=== PATIENT | female | born 1960 | race Caucasian/White ===

== ENCOUNTER → 2016-10-22 | Outpatient (CLI) | payer BC ==
--- NOTE | 2016-10-23 10:08 | MM ---
Reason for exam: screening (asymptomatic). Last mammogram was performed 1 year and 1 month ago. History: Patient is postmenopausal. Took estrogen for 5 years 4 months. Physical Findings: A clinical breast exam by your physician is recommended on an annual basis and results should be correlated with mammographic findings. MG Screening Mammo w CAD Bilateral CC and MLO view(s) were taken. Prior study comparison: September 18, 2015, bilateral MG screening mammo w CAD. September 05, 2014, bilateral MG screening mammo w CAD. The breast tissue is heterogeneously dense. This may lower the sensitivity of mammography. Benign calcifications. There is no discrete abnormality. No significant changes when compared with prior studies. ASSESSMENT: Benign, BI-RAD 2 RECOMMENDATION: Routine screening mammogram of both breasts in 1 year.
== END | disposition home or self-care (01) ==
LOC: RADMAMWWP 08:58
PROVIDERS: ATTEND Obstetrics & Gynecology
DX: Z12.31 Encounter for screening mammogram for malignant neoplasm of breast (principal)

== ENCOUNTER → 2016-11-20 | Outpatient (CLI) | payer BC ==
--- NOTE | 2016-11-20 10:07 | XR ---
EXAMINATION TYPE: XR chest 2V DATE OF EXAM: 11/20/2016 9:47 AM COMPARISON: April 22, 2014 HISTORY: Shortness of breath TECHNIQUE: Frontal and lateral views of the chest are obtained. FINDINGS: Scattered senescent parenchymal changes noted. Hyperinflation compatible with COPD. No evidence for infiltrate. No evidence for atelectasis. Heart size is stable. Mediastinal structures are stable and grossly unremarkable. No evidence for hilar prominence. Degenerative changes dorsal spine. IMPRESSION: 1. No evidence for acute pulmonary disease.
== END | disposition home or self-care (01) ==
LOC: RADXRMAIN 09:31
PROVIDERS: ATTEND Family Medicine
DX: R07.9 Chest pain, unspecified (principal)
CPT/HCPCS: 71020

== ENCOUNTER → 2017-05-18 | Outpatient (CLI) | payer BC ==
[2017-05-18 08:00] LABS: EKG EKG PERFORMED
[2017-05-18 08:24] LABS: CH 32.6; CHCM 34.2; HCT 39.2 % (34.0-46.0); HDW 2.38; HGB 12.8 gm/dL (11.4-16.0); MCH 31.3 pg (25.0-35.0); MCHC 32.7 g/dL (31.0-37.0); MCV 95.7 fL (80.0-100.0); Mean Platelet Volume 7.4; WBC 5.3 k/uL (3.8-10.6)
[2017-05-18 08:32] LABS: Appearance,Urine Clear (Clear); Bilirubin,Urine Negative (Negative); Glucose,Urine (UA) Negative (Negative); Ketones,Urine Negative (Negative); Leukocyte Esterase,Urine Negative (Negative); Nitrite,Urine Negative (Negative); Protein,Urine Negative (Negative); Specific Gravity,Urine 1.011 (1.001-1.035); UA Billing (MACRO vs. MICRO) CHEM; Urobilinogen,Urine <2.0 mg/dL (<2.0)
[2017-05-18 08:34] LABS: Partial Thromboplastin Time 24.7 sec (22.0-30.0); Prothrombin Time 10.1 sec (9.0-12.0)
[2017-05-18 08:41] LABS: ALT 34 U/L (9-52); AST 27 U/L (14-36); Alkaline Phosphatase 81 U/L (38-126); Anion Gap 8 mmol/L; Blood Urea Nitrogen 11 mg/dL (7-17); Calcium 9.2 mg/dL (8.4-10.2); Carbon Dioxide 28 mmol/L (22-30); Chloride 106 mmol/L (98-107); Glucose 85 mg/dL (74-99); Non-African American GFR(MDRD) >60 (>60 ml/min/1.73 sqM); Potassium 4.1 mmol/L (3.5-5.1); Sodium 142 mmol/L (137-145); Total Bilirubin 0.5 mg/dL (0.2-1.3); Total Protein 6.5 g/dL (6.3-8.2)
== END | disposition home or self-care (01) ==
LOC: LABPAT 07:50
PROVIDERS: ATTEND Orthopaedic Surgery
DX: Z01.810 Encounter for preprocedural cardiovascular examination (principal); Z01.812 Encounter for preprocedural laboratory examination
CPT/HCPCS: 80053; 81003; 85027; 85610; 85730; 87070; 93005

== ENCOUNTER 2017-06-01 07:30 | Inpatient (IN) | payer BC ==
[2017-05-26 14:36] VITALS: BMI 22.7
[~2017-06-01 07:30] MED LIST: ACETAMINOPHEN TAB 500 MG TAB PO ONE; DEXAMETHASONE SOD PHOSPHATE 10 MG/ML 1 ML VIAL IV ONE; MELOXICAM 7.5 MG TAB PO ONE; MIDAZOLAM 2 MG/2 ML VIAL IV PRN; ONDANSETRON 4 MG/2 ML VIAL IVP ONE; SCOPOLAMINE 1.5MG/72HR PATCH TRANSDERM ONE; ceFAZolin 2 GM in SODIUM CHLORIDE 0.9% 100 ML IVPB ONE; fentaNYL (PF) 50 MCG/ML 2 ML AMP IV PRN
[2017-06-01] MEDS ORDERED: LIDOCAINE 1% 20 ML VIAL (10MG/ML) FOR IV START INTRADERMA ONE (08:40)
[2017-06-01] MEDS: LACTATED RINGERS 1,000 ML IV SCH (08:40)
[2017-06-01] MEDS ORDERED: MIDAZOLAM 2 MG/2 ML VIAL IV ONE (08:50)
[2017-06-01] MEDS ORDERED: ROPIVACAINE 1,100 MG, SODIUM CHLORIDE 0.9% 330 ML MISCELLANE PRN ×2 (09:28)
--- NOTE | 2017-06-01 09:29 | P.ONQ ---
Anesthesiology Proc Note - PNB - Peripheral Nerve Block Performed Right Adductor Canal Indication: Acute Post-Operative Pain, Dx/Pain Location (Jelani Cabezas) Sedation Type: Sedate with meaningful contact maintained Preparation: Sterile Dressing Position: Supine Catheter: Indwelling Needle Types: Other (see comment) (Naveed) Needle Size: 100mm (4") Needle Gauge: 18 Technique: Ultrasound Injectate: 0.5% Ropivacaine (see comment for volume) (20cc) Blood Aspirated: No Pain Paresthesia on Injection Noted: No Resistance on Injection: Normal Events: Uneventful and Well Tolerated
[2017-06-01] MEDS ORDERED: MAGNESIUM HYDROXIDE 2,400 MG/10 ML CUP PO PRN (09:44)
[2017-06-01] MEDS ORDERED: NA PHOS,M-B/NA PHOS,DI-BA 133 ML ENEMA RECTAL PRN (09:44)
[2017-06-01] MEDS ORDERED: BISACODYL 10 MG SUPP RECTAL PRN (09:44)
[2017-06-01] MEDS ORDERED: NALOXONE 0.4 MG/ML 1 ML VIAL IV PRN (09:44)
[2017-06-01] MEDS ORDERED: HYDROcodone/APAP 5-325MG 1 EACH TAB PO PRN (09:44)
[2017-06-01] MEDS ORDERED: DIAZEPAM 5 MG TAB PO PRN ×2 (09:44)
[2017-06-01] MEDS ORDERED: HYDROmorphone 1 MG/ML 1 ML SYRINGE IVP PRN ×2 (09:44)
[2017-06-01] MEDS ORDERED: TRANEXAMIC ACID 1,000 MG/10 ML VIAL ONE (10:07)
[2017-06-01] MEDS ORDERED: SODIUM CHLORIDE 0.9% 100 ML BAG ONE (10:07)
[2017-06-01] MEDS ORDERED: fentaNYL (PF) 50 MCG/ML 2 ML AMP ONE (10:07)
[2017-06-01] MEDS ORDERED: MIDAZOLAM 2 MG/2 ML VIAL ONE (10:07)
[2017-06-01] MEDS ORDERED: ePHEDrine SULFATE/0.9% NACL/PF 50 MG/5 ML SYRINGE IV ONE (10:07)
[2017-06-01] MEDS ORDERED: SUCCINYLCHOLINE CHLORIDE 100 MG/5 ML SYR IV ONE (10:07)
[2017-06-01] MEDS ORDERED: LIDOCAINE 1% INJ 10MG/ML (20 ML MDV) ONE (10:07)
[2017-06-01] MEDS ORDERED: ceFAZolin 3,000 MG in SODIUM CHLORIDE 0.9% IRRIGATIO 3,000 ML IRRIGATION ONE (10:07)
[2017-06-01] MEDS ORDERED: PROPOFOL 10 MG/ML 20 ML VIAL IV ONE (10:07)
[2017-06-01] MEDS ORDERED: TRANEXAMIC ACID 1,000 MG in SODIUM CHLORIDE 0.9% 100 ML IVPB ONE ×2 (10:08→10:09)
[2017-06-01] MEDS: ROPIVACAINE 246.25 MG, EPINEPHrine 0.5 MG, KETOROLAC 30 MG, cloNIDine HCL/PF 80 MCG, WA... MISCELLANE ONE ×10 (10:38→11:15)
[2017-06-01] MEDS ORDERED: LACTATED RINGERS 1,000 ML IV ONE (10:47)
[2017-06-01] MEDS ORDERED: ONDANSETRON 4 MG/2 ML VIAL IVP ONE (12:06)
[2017-06-01] MEDS: SODIUM CHLORIDE 0.9% 1,000 ML IV SCH (13:40)
--- NOTE | 2017-06-01 14:20 | XR ---
EXAMINATION TYPE: XR knee limited RT DATE OF EXAM: 06/01/2017 COMPARISON: NONE TECHNIQUE: Two views submitted HISTORY: Post op FINDINGS: There is a prosthetic knee in near anatomic alignment. There is soft tissue edema and emphysema. IMPRESSION: 1. Postoperative change. Appears in near-anatomic alignment
[2017-06-01] MEDS ORDERED: SUMAtriptan SUCCINATE 50 MG TAB PO PRN (14:56)
--- NOTE | 2017-06-01 15:04 | P.OP ---
Date of Procedure: 06/01/17 Preoperative Diagnosis: Severe osteoarthritis of the right knee Postoperative Diagnosis: Severe osteoarthritis of the right knee Procedure(s) Performed: Right total knee arthroplasty Implants: Marks [employer]hew Oxinium femoral component size 6, right Marks [employer]hew Binta II right nonporous tibial baseplate size 6 [employer]hew size 11 mm Legion XLPE dished articular insert, size 5-6 [employer]hew Binta II resurfacing patellar component, 29 mm, 7.5 mm thick. All components were cemented using Luis bone cement.. The articulation is ceramic on polyethylene. Anesthesia: spinal Surgeon: Jelani Cabezas Colorer Machine #1: Yesenia Gregory Estimated Blood Loss (ml): 50 Pathology: other (Bone and cartilage) Condition: stable Disposition: PACU Indications for Procedure: After failure of conservative treatment we discussed the surgical and nonsurgical treatment options at length. Patient wishes to proceed with a total knee arthroplasty. Complications specific to this procedure were discussed at length, including but not limited to infection, bleeding, stiffness , and nerve injury. Patient is aware of all these complications and informed consent was obtained Operative Findings: The operative findings are consistent with severe osteoarthritis of the right knee Description of Procedure: Patient was seen in the preoperative area consent was reviewed and operative site was marked with a skin marker. An adductor canal pain catheter was placed by anesthesia in the preoperative area. Patient was then brought to the operating room and given preoperative antibiotics intravenously. A spinal anesthetic was administered by the anesthesia department. A tourniquet was placed on the upper thigh and the lower extremity was prepped and draped in usual sterile fashion. A gram of transexamic acid was given. A universal timeout was then performed which confirmed the patient's name, surgical site, ALLERGIES, and consent. The lower extremity was then exsanguinated and tourniquet was inflated to 250 mmHg. A standard and anterior midline approach to the knee was performed. The skin and subcutaneous tissue was dissected down to the patellar tendon. A medial parapatellar arthrotomy was then performed. The knee was then extended, the patellar was everted, and the knee was again flexed. Anterior horns of both menisci were excised, and a release was performed to the posterior medial aspect of the knee. On gross visual inspection, there was complete loss of articular cartilage in the medial and patellofemoral joint spaces. There was also significant cartilage damage in the lateral compartment. There were multiple periarticular osteophytes which were then removed with a Ronguer. The femoral canal was then opened with the appropriate drill, and the intramedullary femoral cutting guide was then placed and set for 4 of valgus. The distal femoral cutting block was then pinned in place, and the distal femur was then cut. The cutting block was then removed and the cut was checked for flatness. Next, the sizing guide was then placed and set for 3 external rotation based off of the epicondylar axis and Whitesides line. After the femur was sized, the appropriate 4-in-1 cutting block was then pinned in place. The anterior condyles were cut without notching. The posterior and chamfer cuts were performed while protecting the collateral ligaments. The cutting block was then removed, and the femoral canal was plugged with autologous bone. Attention was then directed to the tibia. The remaining ACL was removed with a Ronguer, and the tibia was then gently subluxed forward with a large bent knee retractor. Any remaining menisci was excised. The posterior lateral corner was cauterized in order to cauterize the lateral geniculate artery. The extra medullary tibial cutting guide was then placed, set for the appropriate rotation , slope, and depth of resection. The proximal tibia cutting guide was then pinned in place. Proximal tibia was then cut and sized. Next trials were then placed with the appropriate-sized insert. The knee was able to fully extend and flex to 130 and was stable throughout all range of motion. The knee was then extended, patella everted. Patella was then measured, and then using an osteotomy guide, the patella was cut at the appropriate level. The patella was then measured and drilled and the patella trial was then placed. The knee was then taken through range of motion with the patella trial and the patella tracked normally. The knee was then extended patella trial was then removed and the patella was everted. Knee was then flexed and lug holes were drilled through the femoral trial and the femoral trial was then removed. The tibial was then exposed, and the tibial broach guide was then pinned in place after it was set for the appropriate rotation to allow for the most coverage without overhang. The tibia was then reamed and broached. The cut surfaces of bone were then irrigated with pulsatile lavage. The posterior structures were injected with the ropivacaine solution. The knee was also irrigated with Irrisept solution. The components were then opened, the cement was mixed, and the components were then cemented in place. The cement was allowed to harden with the knee in full extension. While the cement was hardening, the remaining soft tissues were then injected with a ropivacaine solution, which consisted of 246.25 mg of ropivacaine, 0.5 mg of epinephrine, 30 mg of Toradol, 80 g of clonidine, and 48.45 mL of sterile water, for a total of 100 mL of fluid injected. After the cemented hardened. The tourniquet was released, and hemostasis was obtained. A second gram of transexamic acid was given. The knee was again irrigated. The knee was again taken through range of motion and found to be stable throughout all range of motion of 0-130 , and the patella tracked normally. The fascia was then closed with #2 strata fix suture. The subcutaneous tissue was closed with 3-0 Vicryl and 3-0 strata fix. Dermabond tape was used for the skin and placed with the knee in flexion. The patient was placed in a sterile dressing. Patient was then transferred to recovery room in stable condition. The respiratory assistant AMANDA Guajardo was required due the complexity surgery and the need for a skilled surgical coordinator. She assisted in positioning, draping, retraction, and closure of the wound.
[2017-06-01] MEDS: HEPARIN SODIUM,PORCINE 5,000 UNIT/ML 1 ML VIAL SQ SCH ×2 (15:23→22:48)
[2017-06-01] MEDS: ONDANSETRON 4 MG/2 ML VIAL IVP PRN (15:23)
[2017-06-01] MEDS: ceFAZolin 2 GM in SODIUM CHLORIDE 0.9% 100 ML IVPB SCH (17:40)
[2017-06-01] MEDS: HYDROmorphone 1 MG/ML 1 ML SYRINGE IVP PRN (18:17)
[2017-06-01] MEDS: hydrOXYzine PAMOATE 25 MG CAP PO PRN (19:58)
[2017-06-01] MEDS: traMADol 50 MG TAB PO PRN (19:59)
[2017-06-01] MEDS: ASPIRIN 325 MG TAB PO SCH (20:01)
[2017-06-01] MEDS: GABAPENTIN 300 MG CAP PO SCH (20:02)
[2017-06-01] MEDS: CITALOPRAM HYDROBROMIDE 20 MG TAB PO SCH (20:02)
[2017-06-01] MEDS: SENNOSIDES-DOCUSATE SODIUM 1 EACH TAB PO SCH (20:04)
[2017-06-01] MEDS: TEMAZEPAM 15 MG CAP PO SCH (20:04)
[2017-06-01] MEDS: HYDROcodone/APAP 5-325MG 1 EACH TAB PO PRN (21:48)
[2017-06-02] MEDS: ceFAZolin 2 GM in SODIUM CHLORIDE 0.9% 100 ML IVPB SCH (01:47)
[2017-06-02] MEDS: SODIUM CHLORIDE 0.9% 1,000 ML IV SCH ×2 (01:49→22:11)
[2017-06-02] MEDS: LACTATED RINGERS 1,000 ML IV SCH (03:54)
[2017-06-02] MEDS: ONDANSETRON 4 MG/2 ML VIAL IVP PRN ×2 (04:58→12:36)
[2017-06-02] MEDS: HYDROcodone/APAP 5-325MG 1 EACH TAB PO PRN ×4 (04:58→19:24)
[2017-06-02 07:25] VITALS: RESP 16
[2017-06-02 07:59] LABS: Basophils % (A) 0 %; CH 31.1; CHCM 33.5; Eosinophils % (A) 0 %; HCT 29.1 % (34.0-46.0); HDW 2.39; HGB 10.1 gm/dL (11.4-16.0); Luc # (Auto) 0.15; Luc % (Auto) 2; Lymphocytes # (A) 1.9 k/uL (1.0-4.8); Lymphocytes % (A) 27 %; MCH 32.4 pg (25.0-35.0); MCHC 34.7 g/dL (31.0-37.0); MCV 93.4 fL (80.0-100.0); Mean Platelet Volume 7.1; Monocytes # (A) 0.4 k/uL (0-1.0); Monocytes % (A) 5 %; Neutrophils # (A) 4.7 k/uL (1.3-7.7); Neutrophils % (A) 66 %; RBC 3.11 m/uL (3.80-5.40); RDW 12.8 % (11.5-15.5); WBC 7.2 k/uL (3.8-10.6); WBC (Perox) 7.29
--- NOTE | 2017-06-02 08:16 | P.PN ---
Subjective Principal diagnosis: Primary osteoarthritis right knee, status post right total knee arthroplasty This is a 56-year-old female who is status post right total knee arthroplasty. This is postoperative day #1. Patient states her pain is under control. Patient states she has not been out of bed yet due to low blood pressure. Patient denies any numbness, weakness, tingling, fever/chills Objective - Vital Signs Vital signs: Vital Signs Temp 97.1 F L 06/02/17 07:00 Pulse 64 06/02/17 07:00 Resp 16 06/02/17 07:00 BP 95/60 06/02/17 07:00 Pulse Ox 97 06/02/17 07:00 Intake & Output 06/01/17 06/02/17 06/02/17 18:59 06:59 18:59 Intake Total 1501 Output Total 50 Balance 1451 Intake: IV 1501 Output: Estimated Blood Loss 50 Other: Voiding Method Incontinent Bedpan # Voids 1 - Exam Vital signs are stable. Patient is in no acute distress and is alert and oriented 3. Calf is soft and nontender. Dressing is clean, dry, and intact. Neurovascular status intact. Patient has full foot and ankle motion. - Labs CBC & Chem 7: 06/02/17 06:40 Labs: Abnormal Lab Results - Last 24 Hours (Table) 06/02/17 Range/Units 06:40 RBC 3.11 L (3.80-5.40) m/uL Hgb 10.1 L (11.4-16.0) gm/dL Hct 29.1 L (34.0-46.0) % Assessment and Plan (1) Primary osteoarthritis of right knee Status: Acute (2) S/P total knee arthroplasty Status: Acute Plan: #1 Continue with routine postoperative care. #2 Anticoagulation with aspirin. #3 Physical therapy and CPM today. #4 Appreciate input from medicine. #5 Anticipate discharge home with home care likely tomorrow.
--- NOTE | 2017-06-02 08:21 | P.PN ---
Progress Note - Text The patient is status post right adductor canal catheter placement. The catheter was placed for postoperative pain control, status post total right arthroplasty. Ropivacaine 0.2% is infusing at 10 mLs per hour. The patient has no complaints of right lower extremity numbness or weakness. Patient's VAS score is 3 -10. Assessment: Patient's adductor canal catheter is in place and working appropriately. Plan: continue infusion and adjust it as needed.
[2017-06-02] MEDS: hydrOXYzine PAMOATE 25 MG CAP PO PRN ×2 (09:12→14:13)
[2017-06-02] MEDS: ASPIRIN 325 MG TAB PO SCH ×2 (09:13→20:22)
[2017-06-02] MEDS: MELOXICAM 7.5 MG TAB PO SCH (09:13)
[2017-06-02] MEDS: HEPARIN SODIUM,PORCINE 5,000 UNIT/ML 1 ML VIAL SQ SCH ×2 (09:13→17:30)
[2017-06-02] MEDS: GABAPENTIN 300 MG CAP PO SCH ×2 (09:13→20:23)
[2017-06-02] MEDS: PANTOPRAZOLE 40 MG TABLET PO SCH (09:13)
[2017-06-02] MEDS ORDERED: SODIUM CHLORIDE 0.9% 1,000 ML IV ONE (12:31)
--- NOTE | 2017-06-02 12:40 | P.CONS ---
History of Present Illness - Reason for Consult Consult date: 06/02/17 Medical management - Chief Complaint S/P right total knee arthroplasty - History of Present Illness 56-year-old female who underwent an elective right total knee arthroplasty on 06/01/[address] Cabezas after failing conservative treatment. Dr. Fleming was consulted for medical management. The patient was seen and examined this morning on rounds with Dr. Fleming. She states she is feeling well overall. She has not been out of bed yet because she says her leg was still numb from her nerve block and ON-Q pain pump. She also states her blood pressure has been low since surgery. Her last documented blood pressure is 95/60 and prior to that was 102/52. She has been afebrile. She is maintaining an oxygen saturation of greater than 92%. She states her pain is well-controlled Addendum: Per Nursing, The patient got up into the chair around 1200 and her blood pressure dropped into the 70s. Patient was asymptomatic. She denies dizziness or lightheadedness. Nursing also states the patient is having pain and she is requesting Dilaudid. Will bolus patient 1 L normal saline. Once blood pressure is stable patient may receive pain medication. Review of Systems GENERAL: Patient denies fever, chills, weight gain, or weight loss. RESPIRATORY: Denies dyspnea, cough, sputum production, or hemoptysis. CARDIOVASCULAR: Denies chest pain, pressure, palpitations, claudication, or arrhythmias. GI: Denies abdominal pain, diarrhea, incontinence, heartburn, nausea, constipation, or blood in the stool. : Denies urinary frequency, burning, dysuria, or cloudy urine. Denies blood in the urine. MUSCULOSKELETAL: Positive for minimal pain at surgical site. Denies cramps, swelling, or decreased range of motion. 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) History of Any Multi-Drug Resistant Organisms: None Reported Past Surgical History: Adenoidectomy, Cholecystectomy, Hysterectomy, Orthopedic Surgery, Tonsillectomy Additional Past Surgical History / Comment(s): athroscopic surgyer rt knee x3, ovarian surgery Past Anesthesia/Blood Transfusion Reactions: Family History of Problems w/ Anesthesia, Postoperative Nausea & Vomiting (PONV) Additional Past Anesthesia/Blood Transfusion Reaction / Comm: mother-PONV Smoking Status: Never smoker - Past Family History Mother Family Medical History: Cancer Additional Family Medical History / Comment(s): lung Sister(s) Family Medical History: Cancer Additional Family Medical History / Comment(s): lung Daughter(s) Family Medical History: Pulmonary Embolus Medications and Allergies Home Medications Medication Instructions Recorded Confirmed Type Gabapentin [Neurontin] 300 mg PO BID 04/22/14 06/01/17 History traMADol HCl [Ultram] 50 mg PO Q6H PRN 04/22/14 06/01/17 History Cholecalciferol (Vitamin D3) 2,000 unit PO DAILY 05/26/17 06/01/17 History [Vitamin D3] Citalopram Hydrobromide [CeleXA] 40 mg PO HS 05/26/17 06/01/17 History Cyanocobalamin (Vitamin B-12) 1,000 mcg PO DAILY 05/26/17 06/01/17 History [Vitamin B-12] Ibuprofen [Motrin] 800 mg PO DAILY PRN 05/26/17 06/01/17 History Multivit-Min/Iron/Folic/Lutein 1 tab PO DAILY 05/26/17 06/01/17 History [Centrum Silver Women Tablet] SUMAtriptan SUCCINATE [Imitrex] 50 mg PO BID PRN 05/26/17 06/01/17 History Temazepam [Restoril] 15 mg PO HS 05/26/17 06/01/17 History Allergies Allergy/AdvReac Type Severity Reaction Status Date / Time fluconazole [From Diflucan] Allergy Swelling Verified 06/01/17 13:32 sulfamethoxazole Allergy Rash/Hives Verified 06/01/17 13:32 [From Bactrim] trimethoprim [From Bactrim] Allergy Rash/Hives Verified 06/01/17 13:32 acetaminophen [From Vicodin] AdvReac Nausea & Verified 06/01/17 13:32 Vomiting hydrocodone bitartrate AdvReac Nausea & Verified 06/01/17 13:32 [From Vicodin] Vomiting Physical Exam Vitals: Vital Signs Temp Pulse Pulse Resp BP Pulse Ox 06/02/17 08:00 64 66 16 06/02/17 07:00 97.1 F L 64 16 95/60 97 06/02/17 05:05 102/52 06/02/17 01:35 98.2 F 68 18 95/57 95 06/01/17 20:00 97 F L 66 18 105/58 97 06/01/17 14:45 68 106/56 97 06/01/17 14:30 65 107/58 96 06/01/17 14:15 63 110/56 96 06/01/17 14:00 67 119/55 96 06/01/17 13:45 66 112/59 95 06/01/17 13:30 69 112/57 96 06/01/17 13:15 68 112/56 96 06/01/17 12:55 96.6 F L 77 16 109/59 98 06/01/17 12:45 73 18 107/55 96 06/01/17 12:30 78 18 110/56 92 L Intake and Output 06/01/17 06/02/17 06/02/17 22:59 06:59 14:59 Other: Voiding Method Bedpan Bedpan # Voids 1 1 GENERAL: Alert and oriented. Appears in no acute distress. Pleasant. RESPIRATORY: Lungs clear bilaterally. No use of accessory muscles. Patient maintaining oxygen saturation greater than 92%. CARDIOVASCULAR: S1 and S2 noted. No murmurs auscultated. No JVD noted. EXTREMITIES: No edema noted. Palpable pedal pulses +2. On-Q pain pump noted to right leg. ABDOMEN: No distention noted. Abdomen soft and round. Normal active bowel sounds auscultated 4 quadrants. No pain or tenderness noted upon palpation. SKIN: Dressing to right knee clean dry and intact. Results CBC & Chem 7: 06/02/17 06:40 Labs: Abnormal Lab Results - Last 24 Hours (Table) 06/02/17 Range/Units 06:40 RBC 3.11 L (3.80-5.40) m/uL Hgb 10.1 L (11.4-16.0) gm/dL Hct 29.1 L (34.0-46.0) % Assessment and Plan Plan: ASSESSMENT: -History of osteoarthritis, status post right total knee arthroplasty -History of arthroscopic surgery to right knee 3 -Postoperative hypotension, may be due to combination of medications and anesthesia -History of atrial fibrillation, not on chronic anticoagulation PLAN: -Continue postop management per Dr. Cabezas -Resume home meds as appropriate -Monitor labs -Continue IV hydration -GI prophylaxis: Protonix 40mg PO daily -DVT prophylaxis: Heparin 5000 units subcu every 8 hours -Monitor vital signs and address as appropriate -Advance diet as tolerated -Physical therapy -Encourage ambulation as tolerated -Continue On-Q pain ball per Anesthesia -Encourage use of incentive spirometer The above impression and plan of care have been discussed and directed by signing physician. Janine Null, nurse practitioner, acting as scribe for signing physician.
[2017-06-02] MEDS: HYDROmorphone 1 MG/ML 1 ML SYRINGE IVP PRN ×2 (13:04→15:56)
[2017-06-02] MEDS: CHOLECALCIFEROL 1,000 UNIT TAB PO SCH (13:05)
[2017-06-02] MEDS: MULTIVITAMINS, THERA 1 EACH TAB PO SCH (13:06)
[2017-06-02] MEDS: CYANOCOBALAMIN 500 MCG TAB PO SCH (13:06)
[2017-06-02] MEDS: traMADol 50 MG TAB PO PRN (20:22)
[2017-06-02] MEDS: CITALOPRAM HYDROBROMIDE 20 MG TAB PO SCH (20:23)
[2017-06-02] MEDS: TEMAZEPAM 15 MG CAP PO SCH (20:23)
[2017-06-02] MEDS: SENNOSIDES-DOCUSATE SODIUM 1 EACH TAB PO SCH (20:24)
[2017-06-03] MEDS: HEPARIN SODIUM,PORCINE 5,000 UNIT/ML 1 ML VIAL SQ SCH ×4 (00:23→23:49)
[2017-06-03] MEDS: hydrOXYzine PAMOATE 25 MG CAP PO PRN ×4 (00:23→16:08)
[2017-06-03] MEDS: HYDROcodone/APAP 5-325MG 1 EACH TAB PO PRN ×5 (00:24→21:16)
[2017-06-03] MEDS: SODIUM CHLORIDE 0.9% 1,000 ML IV SCH ×2 (00:32→21:15)
[2017-06-03] MEDS: LACTATED RINGERS 1,000 ML IV SCH (00:33)
[2017-06-03] MEDS: MELOXICAM 7.5 MG TAB PO SCH (07:57)
[2017-06-03] MEDS: ASPIRIN 325 MG TAB PO SCH ×2 (07:57→21:15)
[2017-06-03] MEDS: PANTOPRAZOLE 40 MG TABLET PO SCH (07:57)
[2017-06-03] MEDS: GABAPENTIN 300 MG CAP PO SCH ×2 (07:57→21:16)
--- NOTE | 2017-06-03 08:38 | P.PN ---
Subjective Principal diagnosis: 56 year old female seen and examined this morning on rounds with Dr. Fleming. She states she is feeling well this morning and her pain is tolerable. She states she was up in the chair yesterday but has not done much walking. Her blood pressure did drop into the 70s yesterday when she got up in the chair. She received 1L fluid bolus. Her blood pressure this morning is 113/59. She is tolerating an oral diet without nausea or vomiting. She denies shortness of breath or chest pain. She denies dizziness or lightheadedness. Objective - Vital Signs Vital signs: Vital Signs Temp 98.5 F 06/03/17 07:00 Pulse 76 06/03/17 07:00 Resp 16 06/03/17 07:00 BP 113/59 06/03/17 07:00 Pulse Ox 94 L 06/03/17 07:00 Intake & Output 06/02/17 06/03/17 06/03/17 18:59 06:59 18:59 Intake Total 200 Output Total 600 300 Balance -600 -100 Intake: Oral 200 Output: Urine 600 300 Other: Voiding Method Bedpan Bedpan # Voids 2 1 - Exam GENERAL: Alert and oriented. Appears in no acute distress. Pleasant. RESPIRATORY: Lungs clear bilaterally. No use of accessory muscles. Patient maintaining oxygen saturation greater than 92%. CARDIOVASCULAR: S1 and S2 noted. No murmurs auscultated. No JVD noted. EXTREMITIES: No edema noted. Palpable pedal pulses +2. On-Q pain pump noted to right leg. ABDOMEN: No distention noted. Abdomen soft and round. Normal active bowel sounds auscultated 4 quadrants. No pain or tenderness noted upon palpation. SKIN: Dressing to right knee clean dry and intact. - Labs CBC & Chem 7: 06/02/17 06:40 Assessment and Plan Plan: ASSESSMENT: -History of osteoarthritis, status post right total knee arthroplasty -History of arthroscopic surgery to right knee 3 -Postoperative hypotension, may be due to combination of medications and anesthesia, resolved -History of atrial fibrillation, not on chronic anticoagulation PLAN: -Continue postop management per Dr. Cabezas -Monitor labs -GI prophylaxis: Protonix 40mg PO daily -DVT prophylaxis: Heparin 5000 units subcu every 8 hours -Monitor vital signs and address as appropriate -Physical therapy -Encourage ambulation as tolerated -Continue On-Q pain ball per Anesthesia -Encourage use of incentive spirometer -Patient is cleared for discharge from a medical standpoint per Dr. Fleming The above impression and plan of care have been discussed and directed by signing physician. Janine Null, nurse practitioner, acting as scribe for signing physician.
--- NOTE | 2017-06-03 08:40 | P.PN ---
Subjective Principal diagnosis: Primary osteoarthritis right knee, status post right total knee arthroplasty This is a 56-year-old female who is status post right total knee arthroplasty. This is postoperative day #2. Patient states her pain is under control, but that she has developed an achiness in the calf and more swelling. Patient has been up and out of bed to sit in a chair, but has had difficulty with low blood pressure and nausea. Patient denies any numbness, weakness, tingling, fever/ chills. Objective - Vital Signs Vital signs: Vital Signs Temp 98.5 F 06/03/17 07:00 Pulse 76 06/03/17 08:00 Resp 16 06/03/17 08:00 BP 113/59 06/03/17 07:00 Pulse Ox 94 L 06/03/17 07:00 Intake & Output 06/02/17 06/03/17 06/03/17 18:59 06:59 18:59 Intake Total 200 Output Total 600 300 Balance -600 -100 Weight 65.771 kg Intake: Oral 200 Output: Urine 600 300 Other: Voiding Method Bedpan Bedpan Bedpan # Voids 2 1 - Exam Vital signs are stable. Patient is in no acute distress and is alert and oriented 3. Calf is soft and mildly tender. Incision is clean, dry, and intact. Neurovascular status intact. Patient has full foot and ankle motion. - Labs CBC & Chem 7: 06/02/17 06:40 Assessment and Plan (1) Primary osteoarthritis of right knee Status: Acute (2) S/P total knee arthroplasty Status: Acute Plan: #1 Continue with routine postoperative care. #2 Doppler pending #3 Anticoagulation with aspirin. #4 Physical therapy and CPM today. #5 Appreciate input from medicine. #6 Anticipate discharge home with home care likely tomorrow.
[2017-06-03] MEDS: CHOLECALCIFEROL 1,000 UNIT TAB PO SCH (12:51)
[2017-06-03] MEDS: MULTIVITAMINS, THERA 1 EACH TAB PO SCH (12:51)
[2017-06-03] MEDS: CYANOCOBALAMIN 500 MCG TAB PO SCH (12:51)
[2017-06-03] MEDS: ONDANSETRON 4 MG/2 ML VIAL IVP PRN (12:51)
--- NOTE | 2017-06-03 12:51 | US ---
EXAMINATION TYPE: US venous doppler duplex LE RT DATE OF EXAM: 06/03/2017 12:36 PM COMPARISON: Prior in PACS December 14, 2013 CLINICAL HISTORY: Patient had right knee replacement on 06/01/2017. Swelling and pain. Patient is curr ently taking blood thinners. SIDE PERFORMED: Right TECHNIQUE: The lower extremity deep venous system is examined utilizing real time linear array sonog autumn with graded compression, doppler sonography and color-flow sonography. VESSELS IMAGED: External Iliac Vein (EIV) Common Femoral Vein Deep Femoral Vein Greater Saphenous Vein * Femoral Vein Popliteal Vein Small Saphenous Vein * Proximal Calf Veins (* superficial vessels) Right Leg: Negative for DVT Grayscale, color doppler, spectral doppler imaging performed of the deep veins of the right lower ext remity. There is normal flow, compressibility, vascular waveforms. IMPRESSION: No ultrasound evidence for acute DVT in right lower extremity.
[2017-06-03] MEDS: traMADol 50 MG TAB PO PRN (14:16)
[2017-06-03] MEDS: CITALOPRAM HYDROBROMIDE 20 MG TAB PO SCH (21:16)
[2017-06-03] MEDS: SENNOSIDES-DOCUSATE SODIUM 1 EACH TAB PO SCH (21:16)
[2017-06-03] MEDS: TEMAZEPAM 15 MG CAP PO SCH (21:34)
[2017-06-04] MEDS: HYDROcodone/APAP 5-325MG 1 EACH TAB PO PRN (04:58)
[2017-06-04 07:40] LABS: Basophils % (A) 0 %; CH 31.3; CHCM 33.7; Eosinophils # (A) 0.3 k/uL (0-0.7); Eosinophils % (A) 5 %; HCT 28.1 % (34.0-46.0); HDW 2.44; HGB 9.6 gm/dL (11.4-16.0); Luc # (Auto) 0.12; Luc % (Auto) 2; Lymphocytes # (A) 1.4 k/uL (1.0-4.8); Lymphocytes % (A) 25 %; MCH 31.7 pg (25.0-35.0); MCV 93.2 fL (80.0-100.0); Mean Platelet Volume 7.3; Monocytes # (A) 0.3 k/uL (0-1.0); Monocytes % (A) 5 %; Neutrophils # (A) 3.5 k/uL (1.3-7.7); Neutrophils % (A) 63 %; RBC 3.02 m/uL (3.80-5.40); WBC 5.5 k/uL (3.8-10.6); WBC (Perox) 5.93
--- NOTE | 2017-06-04 08:33 | P.DS ---
Providers Date of admission: 06/01/17 07:53 Expected date of discharge: 06/04/17 Attending physician: Jelani Cabezas Consults: 06/01/17 09:44 Consult Physician Routine Consulting Provider: Douglas Fleming Reason/Comments: medical management Do you want consulting provider notified?: Yes Primary care physician: Douglas Fleming - Discharge Diagnosis(es) (1) Primary osteoarthritis of right knee Current Visit: Yes Status: Acute (2) S/P total knee arthroplasty Current Visit: Yes Status: Acute Hospital Course: This is a 56-year-old female with known history of degenerative arthritis of the right knee. The patient presents for evaluation. After discussion and consideration patient elects to proceed with total knee arthroplasty. The patient is seen preoperatively by Dr. Cabezas and cleared for surgery. Patient is admitted to [facility] on 06/01/2017 for total knee arthroplasty. The procedures performed without complication or sequelae. The patient is doing well postoperatively. Labs and vital signs are stable on day of discharge. On day of discharge patient's knee incision is healing well. There is minimal erythema. There is no drainage noted at this time. There is minimal soft tissue swelling to the knee. Patient has full foot and ankle motion without difficulty or pain. Neurovascular status to the right lower extremity is intact. Patient is discharged arm in good condition. Please see med rec for accurate list of home medications. Plan - Discharge Summary New Discharge Prescriptions: New Aspirin 325 mg PO BID #60 tab HYDROcodone/APAP 5-325MG [Barre 5-325] 1 - 2 tab PO Q4-6H PRN #90 tab PRN Reason: Pain Sennosides-Docusate Sodium [Senokot-S] 1 tab PO BID #60 tablet No Action traMADol HCl [Ultram] 50 mg PO Q6H PRN PRN Reason: Pain Gabapentin [Neurontin] 300 mg PO BID Ibuprofen [Motrin] 800 mg PO DAILY PRN PRN Reason: Pain Temazepam [Restoril] 15 mg PO HS Citalopram Hydrobromide [CeleXA] 40 mg PO HS SUMAtriptan SUCCINATE [Imitrex] 50 mg PO BID PRN PRN Reason: migraines Multivit-Min/Iron/Folic/Lutein [Centrum Silver Women Tablet] 1 tab PO DAILY Cyanocobalamin (Vitamin B-12) [Vitamin B-12] 1,000 mcg PO DAILY Cholecalciferol (Vitamin D3) [Vitamin D3] 2,000 unit PO DAILY Discharge Medication List Gabapentin [Neurontin] 300 mg PO BID 04/22/14 [History] traMADol HCl [Ultram] 50 mg PO Q6H PRN 04/22/14 [History] Cholecalciferol (Vitamin D3) [Vitamin D3] 2,000 unit PO DAILY 05/26/17 [History] Citalopram Hydrobromide [CeleXA] 40 mg PO HS 05/26/17 [History] Cyanocobalamin (Vitamin B-12) [Vitamin B-12] 1,000 mcg PO DAILY 05/26/17 [ History] Ibuprofen [Motrin] 800 mg PO DAILY PRN 05/26/17 [History] Multivit-Min/Iron/Folic/Lutein [Centrum Silver Women Tablet] 1 tab PO DAILY 03/06 [History] SUMAtriptan SUCCINATE [Imitrex] 50 mg PO BID PRN 05/26/17 [History] Temazepam [Restoril] 15 mg PO HS 05/26/17 [History] Aspirin 325 mg PO BID #60 tab 06/03/17 [Rx] HYDROcodone/APAP 5-325MG [Barre 5-325] 1 - 2 tab PO Q4-6H PRN #90 tab 06/03/17 [ Rx] Sennosides-Docusate Sodium [Senokot-S] 1 tab PO BID #60 tablet 06/03/17 [Rx] Follow up Appointment(s)/Referral(s): [facility], [NON-STAFF] - Jelani Cabezas DO [Doctor of Osteopathic Medicine] - 06/18/17 9:00 am Ambulatory/Diagnostic Orders: Continuous Passive Motion (CPM) Machine [DME.AMB1] Time Frame: 2 Weeks, Location : Determined By Patient Activity/Diet/Wound Care/Special Instructions: Walker through [place] [employer] [phone] Weightbearing as tolerated with a walker CPM 5-6h daily Daily dressing changes, keep incision clean and dry May shower if no drainage from incision [facility] with questions or concerns [phone] Discharge Disposition: HOME WITH HOME HEALTH SERVICES
[2017-06-04 08:45] VITALS: BP 102/51; PULSE 82; TEMP 97.1
[2017-06-04] MEDS: traMADol 50 MG TAB PO PRN (08:56)
[2017-06-04] MEDS: GABAPENTIN 300 MG CAP PO SCH (08:56)
[2017-06-04] MEDS: ASPIRIN 325 MG TAB PO SCH (08:56)
[2017-06-04] MEDS: HEPARIN SODIUM,PORCINE 5,000 UNIT/ML 1 ML VIAL SQ SCH (08:56)
[2017-06-04] MEDS: MELOXICAM 7.5 MG TAB PO SCH (08:57)
--- NOTE | 2017-06-04 08:57 | P.PN ---
Progress Note - Text patient seen and examined on rounds with Dr. Fleming. Patient states she is feeling well and anxious to go home. States pain is controlled. She is tolerating an oral diet without nausea or vomiting. vital signs have been stable. Patient is cleared for discharge from a medical standpoint. Patient to follow up with Dr. Fleming in 1-2 weeks.
[2017-06-04] MEDS: SODIUM CHLORIDE 0.9% 1,000 ML IV SCH (09:02)
[2017-06-04] MEDS: PANTOPRAZOLE 40 MG TABLET PO SCH (09:14)
[2017-06-04] MEDS: LACTATED RINGERS 1,000 ML IV SCH (09:14)
== END 2017-06-04 09:55 | disposition home health service (06) | DRG 470 ==
LOC: 2ORMAIN 07:53 → 3SUR 12:12
PROVIDERS: ADMIT Orthopaedic Surgery; ATTEND Orthopaedic Surgery
PROC: 0SRC0J9 Replacement of Right Knee Joint with Synthetic Substitute, Cemented, Open Approach (ICD-10-PCS; principal; 2017-06-01 09:40)
DX: M17.11 Unilateral primary osteoarthritis, right knee (principal); I48.91 Unspecified atrial fibrillation; H54.41 Blindness, right eye, normal vision left eye; G43.909 Migraine, unspecified, not intractable, without status migrainosus; M25.761 Osteophyte, right knee; I95.2 Hypotension due to drugs; T41.45XA Adverse effect of unspecified anesthetic, initial encounter; Z88.2 Allergy status to sulfonamides; Z80.1 Family history of malignant neoplasm of trachea, bronchus and lung; Z90.49 Acquired absence of other specified parts of digestive tract; Z79.899 Other long term (current) drug therapy; Z90.710 Acquired absence of both cervix and uterus; Z82.49 Family history of ischemic heart disease and other diseases of the circulatory system; Z79.1 Long term (current) use of non-steroidal anti-inflammatories (NSAID); Z88.6 Allergy status to analgesic agent; Z88.8 Allergy status to other drugs, medicaments and biological substances
CPT/HCPCS: 85025; 88300

== ENCOUNTER → 2017-11-09 | Outpatient (CLI) | payer BC ==
--- NOTE | 2017-11-09 16:33 | BD ---
EXAMINATION TYPE: MG DEXA axial skeleton. DATE OF EXAM: 11/09/2017 COMPARISON: 09/05/2014 CLINICAL HISTORY: 57-year-old female osteopenia Height: 66 IN Weight: 150 LBS FRAX RISK QUESTIONS: Alcohol (3 or more units per day): NO Family History (Parent hip fracture): NO Glucocorticoids (More than 3mos): NO (Ex: prednisone, prednisolone, methylprednisolone, dexamethasone, and hydrocortisone). History of Fracture in Adulthood: YES RIBS AGE 54 Secondary Osteoporosis: 1. Type 1 Diabetes: NO 2. Hyperthyroidism: NO 3. Menopause before 45: AGE 39 TOTAL HYST 4. Malnutrition: NO 5. Chronic liver disease: NO Rheumatoid Arthritis: NO Current Tobacco Use: NO RISK FACTORS HISTORY OF: Active: YES Diet low in dairy products/other sources of calcium: YES Postmenopausal woman: AGE 39 Take estrogen and/or progesterone medications: NOT NOW How long: AGE 39 - 44 MEDICATIONS: Osteoporosis Medications: NOT NOW Which medication: Fosamax How Long: AGE 52 FOR 1 YEAR Additional Medications: GABAPENTIN, TEMAZEPAM, CITALOPRAM, SUMATRIPTAN, MOTRIN 800, OSTEO BI-FLEX, B1 2, BENADRYL, MELATONIN, TRAMADOL EXAM MEASUREMENTS: Bone mineral densitometry was performed using the [employer] System. Bone mineral density as measured about the Lumbar spine is: ----- L1-L4(G/cm2): 0.895 T Score Values are as follows: ----- L2: -2.4 ----- L3: -2.1 ----- L4: -2.7 ----- L1-L4: -2.4 Bone mineral density has: Decreased -7.1% since study of: 09/05/2014 Bone mineral density about the R hip (g/cm2): 0.969 Bone mineral density about the L hip (g/cm2): 0.938 T Score values are as follows: -----R Neck: -0.5 -----L Neck: -0.7 -----R Total: -0.4 -----L Total: -0.3 Bone mineral density has: Decreased -6.9% since study of: 09/05/2014 IMPRESSION: Osteopenia (T Score between -2.5 and -1). However, note that measurements border on osteoporosis in t he lumbar spine. There is slightly increased risk of fracture and the patient may be considered for treatment. Re-Screen 2-5 years. NOTE: T-SCORE=SD OF THE YOUNG ADULT MEAN.
--- NOTE | 2017-11-11 08:54 | MM ---
Reason for exam: screening (asymptomatic). Last mammogram was performed 1 year and 1 month ago. History: Patient is postmenopausal. Took estrogen for 5 years 4 months. Physical Findings: A clinical breast exam by your physician is recommended on an annual basis and results should be correlated with mammographic findings. MG Screening Mammo w CAD Bilateral CC and MLO view(s) were taken. Prior study comparison: October 22, 2016, bilateral MG screening mammo w CAD. September 18, 2015, bilateral MG screening mammo w CAD. The breast tissue is heterogeneously dense. This may lower the sensitivity of mammography. No significant changes when compared with prior studies. ASSESSMENT: Negative, BI-RAD 1 RECOMMENDATION: Routine screening mammogram of both breasts in 1 year.
== END | disposition home or self-care (01) ==
LOC: RADMAMWWP 15:01
PROVIDERS: ATTEND Obstetrics & Gynecology
DX: Z12.31 Encounter for screening mammogram for malignant neoplasm of breast (principal); M85.80 Other specified disorders of bone density and structure, unspecified site
CPT/HCPCS: 77067; 77080

== ENCOUNTER → 2018-11-18 | Day surgery (SDC) | payer BC ==
[2018-11-15 15:32] VITALS: BMI 25.0
[~2018-11-18] MED LIST changes: -ACETAMINOPHEN TAB 500 MG TAB PO ONE; -DEXAMETHASONE SOD PHOSPHATE 10 MG/ML 1 ML VIAL IV ONE; +LACTATED RINGERS 1,000 ML IV SCH; +LIDOCAINE 1% 20 ML VIAL (10MG/ML) FOR IV START INTRADERMA ONE; +LIDOCAINE 1% INJ 10MG/ML (20 ML MDV) ONE; -MELOXICAM 7.5 MG TAB PO ONE; -MIDAZOLAM 2 MG/2 ML VIAL IV PRN; -ONDANSETRON 4 MG/2 ML VIAL IVP ONE; +PROPOFOL 10 MG/ML 20 ML VIAL IV ONE; -SCOPOLAMINE 1.5MG/72HR PATCH TRANSDERM ONE; -ceFAZolin 2 GM in SODIUM CHLORIDE 0.9% 100 ML IVPB ONE; -fentaNYL (PF) 50 MCG/ML 2 ML AMP IV PRN
[2018-11-18 07:42] VITALS: TEMP 97.4
--- NOTE | 2018-11-18 08:39 | P.GSHP ---
History of Present Illness H&P Date: 11/18/18 Chief Complaint: Colon cancer screening Patient here today for colonoscopy. She is not sure how long ago her last colonoscopy was. No bowel related complaints. Some mild right-sided abdominal pain. No family history of colon cancer. Previous colonoscopies normal. Past Medical History Past Medical History: AFIB Additional Past Medical History / Comment(s): migraines, palpitations, History of Any Multi-Drug Resistant Organisms: None Reported Past Surgical History: Adenoidectomy, Cholecystectomy, Hysterectomy, Joint Replacement, Orthopedic Surgery, Tonsillectomy Additional Past Surgical History / Comment(s): athroscopic surgery rt knee x3, rt knee replacement, Past Anesthesia/Blood Transfusion Reactions: Family History of Problems w/ Anesthesia, Postoperative Nausea & Vomiting (PONV) Additional Past Anesthesia/Blood Transfusion Reaction / Comment(s): mother-PONV Smoking Status: Never smoker - Past Family History Mother Family Medical History: Cancer Additional Family Medical History / Comment(s): lung Sister(s) Family Medical History: Cancer Additional Family Medical History / Comment(s): lung Daughter(s) Family Medical History: Pulmonary Embolus Medications and Allergies Home Medications Medication Instructions Recorded Confirmed Type Gabapentin [Neurontin] 300 mg PO BID 04/22/14 11/18/18 History Cholecalciferol (Vitamin D3) 2,000 unit PO DAILY 05/26/17 11/18/18 History [Vitamin D3] Citalopram Hydrobromide [CeleXA] 40 mg PO HS 05/26/17 11/18/18 History Cyanocobalamin (Vitamin B-12) 2,500 mcg PO DAILY 05/26/17 11/18/18 History [Vitamin B-12] Ibuprofen [Motrin] 800 mg PO DAILY PRN 05/26/17 11/18/18 History SUMAtriptan SUCCINATE [Imitrex] 50 mg PO BID PRN 05/26/17 11/18/18 History Temazepam [Restoril] 15 mg PO HS 05/26/17 11/18/18 History Ascorbic Acid [Vitamin C] 500 mg PO DAILY 11/15/18 11/18/18 History Ferrous Sulfate [Feosol] 325 mg PO DAILY 11/15/18 11/18/18 History Allergies Allergy/AdvReac Type Severity Reaction Status Date / Time fluconazole [From Diflucan] Allergy Swelling Verified 11/15/18 15:23 sulfamethoxazole Allergy Rash/Hives Verified 11/15/18 15:23 [From Bactrim] trimethoprim [From Bactrim] Allergy Rash/Hives Verified 11/15/18 15:23 acetaminophen [From Vicodin] AdvReac Nausea & Verified 11/15/18 15:23 Vomiting hydrocodone bitartrate AdvReac Nausea & Verified 11/15/18 15:23 [From Vicodin] Vomiting Surgical - Exam Vital Signs Temp Pulse Resp BP Pulse Ox 97.4 F L 66 16 119/61 98 11/18/18 07:38 11/18/18 07:38 11/18/18 07:38 11/18/18 07:38 11/18/18 07:38 Physical exam: General: Well-developed, well-nourished HEENT: Normocephalic, sclerae nonicteric Abdomen: Nontender, nondistended Extremities: No edema Neuro: Alert and oriented Assessment and Plan (1) Colon cancer screening Narrative/Plan: Will proceed with colonoscopy at this time Current Visit: Yes Status: Acute Code(s): Z12.11 - ENCOUNTER FOR SCREENING FOR MALIGNANT NEOPLASM OF COLON SNOMED Code(s): 675964342
--- NOTE | 2018-11-18 08:52 | P.PCN ---
Date of Procedure: 11/18/18 Procedure(s) Performed: PREOPERATIVE DIAGNOSIS: Colon cancer screening POSTOPERATIVE DIAGNOSIS: Normal exam PROCEDURE: Colonoscopy ANESTHESIA: MAC SURGEON: Jalen Phelps M.D. SPECIMENS: None ENDOSCOPIC PROCEDURE: The patient was placed on the endoscopy table in the left decubitus position. The Olympus colonoscope was inserted into the anus and passed under direct visualization to the base of the cecum. The appendiceal orifice was visualized. From that point the scope was slowly withdrawn inspecting all surfaces carefully. There were no neoplastic inflammatory or polypoid lesions throughout the cecum, ascending, transverse, descending, sigmoid and rectum. There was no diverticulosis noted. Digital rectal examination was normal. The patient was taken to the recovery room in stable condition per anesthesia guidelines. RECOMMENDATIONS: Increase fiber. Follow-up colonoscopy in 10 years.
[2018-11-18 09:26] VITALS: BP 113/71; PULSE 61; RESP 17
== END ==
LOC: ORWHC2ENDO 07:25
PROVIDERS: ATTEND Surgery
DX: Z12.11 Encounter for screening for malignant neoplasm of colon (principal); I48.91 Unspecified atrial fibrillation; G43.909 Migraine, unspecified, not intractable, without status migrainosus; Z79.1 Long term (current) use of non-steroidal anti-inflammatories (NSAID); Z79.899 Other long term (current) drug therapy; Z88.1 Allergy status to other antibiotic agents; Z88.5 Allergy status to narcotic agent; Z88.2 Allergy status to sulfonamides
CPT/HCPCS: J2001; J2704; G0121

== ENCOUNTER → 2019-10-02 | Outpatient (CLI) | payer BC ==
--- NOTE | 2019-10-02 14:54 | XR ---
EXAMINATION TYPE: XR chest 2V DATE OF EXAM: 10/02/2019 COMPARISON: 11/20/2016 HISTORY: Cough and congestion TECHNIQUE: Frontal and lateral views of the chest are obtained. FINDINGS: There is no focal air space opacity, pleural effusion, or pneumothorax seen. The cardiac silhouette size is within normal limits. Mild multilevel degenerative change of the spine. The osseo us structures are intact. Cholecystectomy clips are evident. IMPRESSION: No acute cardiopulmonary process.
== END | disposition home or self-care (01) ==
LOC: RADXRMAIN 12:18
PROVIDERS: ATTEND Family Medicine
DX: R05 Cough (principal); R06.00 Dyspnea, unspecified
CPT/HCPCS: 71046

== ENCOUNTER → 2019-10-27 | Outpatient (CLI) | payer BC ==
--- NOTE | 2019-10-28 19:06 | CT ---
EXAMINATION TYPE: CT brain w con DATE OF EXAM: 10/27/2019 COMPARISON: MRI of the brain dated 11/11/2015 HISTORY: headaches and dizziness post head injury CT DLP: 981.7 mGycm Automated Exposure Control for Dose Reduction was Utilized. TECHNIQUE: CT scan of the head is performed with IV contrast.,CT scan of the head is performed withou t and with with IV Contrast, patient injected with 100 mL of Isovue 300. FINDINGS: Noncontrast images not obtained and therefore there is limited evaluation for intracrania l hemorrhage. No midline shift is seen. The ventricles and sulci are within normal limits in size. Po stcontrast images show no suspicious enhancing intraparenchymal mass. The globes are intact and the v isualized sinuses are clear. IMPRESSION: Exam is limited for intracranial hemorrhage given no images without contrast were obtain ed. Negative contrast enhanced head CT exam. No calvarial fracture.
== END | disposition home or self-care (01) ==
LOC: RADCTMAIN 16:49
PROVIDERS: ATTEND Family Medicine
DX: S06.0X0D Concussion without loss of consciousness, subsequent encounter (principal); Z87.820 Personal history of traumatic brain injury; Z88.1 Allergy status to other antibiotic agents; Z88.2 Allergy status to sulfonamides; Z88.5 Allergy status to narcotic agent
CPT/HCPCS: 70460; Q9967

== ENCOUNTER 2019-11-30 09:53 | Emergency (ER) | payer BC ==
[2019-11-30 09:59] VITALS: BP 129/59; PULSE 66; RESP 18; TEMP 97.8
--- NOTE | 2019-11-30 10:14 | ED ---
Skin/Abscess/FB HPI - General Chief complaint: Skin/Abscess/Foreign Body Stated complaint: swallowed mouthguard Time Seen by Provider: 11/30/19 10:07 Source: patient, RN notes reviewed Mode of arrival: ambulatory Limitations: no limitations - History of Present Illness Initial comments: This a 59-year-old female presents emergency Department with chief complaint of possibly swallowing her mouth guard. Patient states she is a very small-like piece her front teeth. Patient states that she did not put in last night states that she get up to take some Motrin and she keeps increasing size container. Patient states that she believes that she swallowed at that time. Patient was able to eat some crackers this morning, and drink some fluids with essentially no difficulty. Patient has no difficulty breathing no shortness of breath. - Related Data Home Medications Medication Instructions Recorded Confirmed Gabapentin [Neurontin] 300 mg PO BID 04/22/14 11/18/18 Cholecalciferol (Vitamin D3) 2,000 unit PO DAILY 05/26/17 11/18/18 [Vitamin D3] Citalopram Hydrobromide [CeleXA] 40 mg PO HS 05/26/17 11/18/18 Cyanocobalamin (Vitamin B-12) 2,500 mcg PO DAILY 05/26/17 11/18/18 [Vitamin B-12] Ibuprofen [Motrin] 800 mg PO DAILY PRN 05/26/17 11/18/18 SUMAtriptan SUCCINATE [Imitrex] 50 mg PO BID PRN 05/26/17 11/18/18 Temazepam [Restoril] 15 mg PO HS 05/26/17 11/18/18 Ascorbic Acid [Vitamin C] 500 mg PO DAILY 11/15/18 11/18/18 Ferrous Sulfate [Feosol] 325 mg PO DAILY 11/15/18 11/18/18 Allergies Allergy/AdvReac Type Severity Reaction Status Date / Time fluconazole [From Diflucan] Allergy Swelling Verified 11/30/19 09:59 sulfamethoxazole Allergy Rash/Hives Verified 11/30/19 09:59 [From Bactrim] trimethoprim [From Bactrim] Allergy Rash/Hives Verified 11/30/19 09:59 acetaminophen [From Vicodin] AdvReac Nausea & Verified 11/30/19 09:59 Vomiting hydrocodone bitartrate AdvReac Nausea & Verified 11/30/19 09:59 [From Vicodin] Vomiting Review of Systems ROS Statement: Those systems with pertinent positive or pertinent negative responses have been documented in the HPI. ROS Other: All systems not noted in ROS Statement are negative. Past Medical History Past Medical History: AFIB Additional Past Medical History / Comment(s): migraines, palpitations, History of Any Multi-Drug Resistant Organisms: None Reported Past Surgical History: Adenoidectomy, Cholecystectomy, Hysterectomy, Joint Replacement, Orthopedic Surgery, Tonsillectomy Additional Past Surgical History / Comment(s): athroscopic surgery rt knee x3, rt knee replacement, Past Anesthesia/Blood Transfusion Reactions: Family History of Problems w/ Anesthesia, Postoperative Nausea & Vomiting (PONV) Additional Past Anesthesia/Blood Transfusion Reaction / Comment(s): mother-PONV Past Psychological History: No Psychological Hx Reported Smoking Status: Never smoker Past Alcohol Use History: None Reported Past Drug Use History: None Reported - Past Family History Mother Family Medical History: Cancer Additional Family Medical History / Comment(s): lung Sister(s) Family Medical History: Cancer Additional Family Medical History / Comment(s): lung Daughter(s) Family Medical History: Pulmonary Embolus General Exam Limitations: no limitations General appearance: alert, in no apparent distress Head exam: Present: atraumatic, normocephalic, normal inspection Eye exam: Present: normal appearance, PERRL, EOMI. Absent: scleral icterus, conjunctival injection, periorbital swelling ENT exam: Present: normal exam, normal oropharynx, mucous membranes moist, TM's normal bilaterally Neck exam: Present: normal inspection, full ROM. Absent: tenderness, meningismus, lymphadenopathy Respiratory exam: Present: normal lung sounds bilaterally. Absent: respiratory distress, wheezes, rales, rhonchi, stridor Cardiovascular Exam: Present: regular rate, normal rhythm, normal heart sounds. Absent: systolic murmur, diastolic murmur, rubs, gallop, clicks Course Vital Signs 11/30/19 09:57 Temperature 97.8 F Pulse Rate 66 Respiratory 18 Rate Blood Pressure 129/59 O2 Sat by Pulse 98 Oximetry Medical Decision Making - Medical Decision Making X-rays unremarkable patient able to eat and drink without difficulty. Patient be discharged. Return parameters were discussed. Disposition Clinical Impression: Swallowed foreign body Disposition: HOME SELF-CARE Condition: Stable Instructions (If sedation given, give patient instructions): Foreign Body Ingestion (ED) Additional Instructions: Please return to the Emergency Department if symptoms worsen or any other concerns. Is patient prescribed a controlled substance at d/c from ED?: No Referrals: Douglas Fleming DO [Primary Care Provider] - 1-2 days Time of Disposition: 10:44
--- NOTE | 2019-11-30 10:34 | XR ---
EXAMINATION TYPE: XR KUB, XR soft tissue neck, XR chest 1V DATE OF EXAM: 11/30/2019 10:22 AM CLINICAL HISTORY: Possible inhaled foreign body. Pain and choking. TECHNIQUE: Two Upright KUB images of the abdomen are obtained. Single frontal view chest. Two-view s oft tissue neck. COMPARISON: Prior chest x-ray October 02, 2019.. FINDINGS: No suspicious prevertebral soft tissue swelling. Region of epiglottis and vallecula appear within normal limits. No suspicious narrowing of subglottic airway. No suspicious radiodense foreign bodies seen. There are some chronic parenchymal change without suspicious focal airspace opacity, pleural effusion , or pneumothorax seen bilaterally. Cardiac silhouette size appears within normal limits. Osseous str uctures are demineralized. Cholecystectomy clips are redemonstrated. Scattered gas is seen in non-distended stomach and small bowel loops. Gas and fecal material is seen in non-distended colon. Dextroconvex scoliosis centered at L2 level. No suspicious radiodense foreign body. No pneumoperitoneum. Facet arthropathy and spurring lower lumbar spine. IMPRESSION: No suspicious radiodense foreign body. No acute pulmonary process. Overall nonobstructive bowel gas pattern.
== END 2019-11-30 10:58 | disposition home or self-care (01) ==
LOC: EC 09:53
DX: T18.9XXA Foreign body of alimentary tract, part unspecified, initial encounter (principal); Z88.2 Allergy status to sulfonamides; Z88.3 Allergy status to other anti-infective agents; Z88.5 Allergy status to narcotic agent; Z79.899 Other long term (current) drug therapy; Z86.69 Personal history of other diseases of the nervous system and sense organs
CPT/HCPCS: 70360; 71045; 74018; 99283

== ENCOUNTER → 2020-04-30 | Outpatient (CLI) | payer BC ==
--- NOTE | 2020-05-01 12:00 | MM ---
Reason for exam: screening (asymptomatic). Last mammogram was performed 1 year and 1 month ago. History: Patient is postmenopausal. Took estrogen for 5 years 4 months. Physical Findings: A clinical breast exam by your physician is recommended on an annual basis and results should be correlated with mammographic findings. MG Screening Mammo w CAD Bilateral CC and MLO view(s) were taken. Prior study comparison: March 22, 2019, bilateral MG screening mammo w CAD. November 09, 2017, bilateral MG screening mammo w CAD. The breast tissue is heterogeneously dense. This may lower the sensitivity of mammography. No significant changes when compared with prior studies. ASSESSMENT: Negative, BI-RAD 1 RECOMMENDATION: Routine screening mammogram of both breasts in 1 year.
== END | disposition home or self-care (01) ==
LOC: RADMAMWWP 07:43
PROVIDERS: ATTEND Obstetrics & Gynecology
DX: Z12.31 Encounter for screening mammogram for malignant neoplasm of breast (principal)
CPT/HCPCS: 77067

== ENCOUNTER → 2020-06-03 | Outpatient (CLI) | payer BC ==
--- NOTE | 2020-06-03 11:33 | BD ---
EXAMINATION TYPE: Axial Bone Density DATE OF EXAM: 06/03/2020 COMPARISON: Prior DEXA bone scan November 09, 2017 CLINICAL HISTORY: Height: 5 FT 6 1/2 IN Weight: 156 FRAX RISK QUESTIONS: Alcohol (3 or more units per day): NO Family History (Parent hip fracture): NO Glucocorticoids (More than 3mos): NO (Ex: prednisone, prednisolone, methylprednisolone, dexamethasone, and hydrocortisone). History of Fracture in Adulthood: YES Secondary Osteoporosis: 1. Type 1 Diabetes: NO 2. Hyperthyroidism: NO 3. Menopause before 45: YES 4. Malnutrition: NO 5. Chronic liver disease: NO Rheumatoid Arthritis: NO Current Tobacco Use: NO RISK FACTORS HISTORY OF: Family History of Osteoporosis: NO Active: YES Postmenopausal woman: TOTAL HYST AGE 39 Take estrogen and/or progesterone medications: TOOK HRT FROM AGE [age] MEDICATIONS: Additional Medications: VIT D , GABAPENTIN, TEMAZEPAM, CELEXA, MIGRAINE MEDS NEEDED, Additional History: EXAM MEASUREMENTS: Bone mineral densitometry was performed using the [employer] System. Bone mineral density as measured about the Lumbar spine is: ----- L1-L4(G/cm2): 0.914 T Score Values are as follows: ----- L2: -2.5 ----- L3: -2.3 ----- L4: -2.1 ----- L1-L4: -2.2 Bone mineral density has: INCREASED 2.2 % since study of: 2017 Bone mineral density about the R hip (g/cm2): 0.933 Bone mineral density about the L hip (g/cm2): 0.916 T Score values are as follows: -----R Neck: -0.8 -----L Neck: -0.9 -----R Total: -0.4 -----L Total: -0.4 Bone mineral density has: DECREASED -0.6 % since study of: 2018 IMPRESSION: Osteopenia (T Score between -2.5 and -1) remains present in the low back. There remains slightly increased risk of fracture and the patient may be considered for treatment. Re-Screen 2-5 years. NOTE: T-SCORE=SD OF THE YOUNG ADULT MEAN.
== END | disposition home or self-care (01) ==
LOC: RADBDWWP 07:15
PROVIDERS: ATTEND Obstetrics & Gynecology
DX: M85.80 Other specified disorders of bone density and structure, unspecified site (principal)
CPT/HCPCS: 77080

== ENCOUNTER → 2020-11-06 | Outpatient (CLI) | payer BC ==
[2020-11-06 18:35] LABS: African American GFR (CKD) >90 (>60 ml/min/1.73 sqM); Blood Urea Nitrogen 12 mg/dL (7-17); Non-African American GFR(CKD) >90 (>60 ml/min/1.73 sqM)
--- NOTE | 2020-11-06 22:42 | CT ---
EXAMINATION TYPE: CT brain wo con DATE OF EXAM: 11/06/2020 COMPARISON: 10/27/2019 INDICATION: Left orbit pain and vision changes. DLP: 1144.7 mGycm, Automated exposure control for dose reduction was used. CONTRAST: None CT of the brain is performed utilizing 3 mm thick sections through the posterior fossa and 3 mm thick sections through the remaining calvarium. Study is performed within 24 hours of arrival to the hosp ital. No abnormal hyperdensity is present to suggest an acute intracranial hemorrhage. No mass lesion is evident. No acute infarcts are evident. Some minimal deep white matter hypodensity may be present suggestive f or chronic white matter ischemic changes. Ventricles and sulci are appropriate for the patient age. Paranasal sinuses and mastoid air cells within the [id number] are clear. IMPRESSIONS: 1. Mild deep white matter ischemic type changes, stable from comparison
--- NOTE | 2020-11-07 07:39 | CT ---
EXAMINATION TYPE: CT orbits wo/w con DATE OF EXAM: 11/06/2020 COMPARISON: None HISTORY: Left orbit pain and vision changes. CT DLP: 733.1 mGycm Automated exposure control for dose reduction was used. CONTRAST: Performed without and with IV Contrast, patient injected with 100ml mL of Isovue 300. Unenhanced and contrast-enhanced CT of the orbits was performed. FINDINGS: The globes are symmetric bilaterally. There is no evidence for intra or extraconal mass. The extraocular musculature appear to be thickened . The optic nerves are symmetric and free of thickening or mass lesion. The globes have a sunken appe arance and there may be a degree of enophthalmos. No enhancing mass. No lacrimal gland lesion. Parana mike sinuses. Be well-aerated. Osseous structures are normal. IMPRESSION: GLOBES APPEAR TO BE SOMEWHAT SUNKEN BILATERALLY. CORRELATE FOR ENOPHALMOS.
== END | disposition home or self-care (01) ==
LOC: RADCTMAIN 17:59
PROVIDERS: ATTEND Family Medicine
DX: I67.82 Cerebral ischemia (principal); H53.462 Homonymous bilateral field defects, left side; H33.009 Unspecified retinal detachment with retinal break, unspecified eye; Z88.1 Allergy status to other antibiotic agents; Z88.2 Allergy status to sulfonamides; Z88.5 Allergy status to narcotic agent
CPT/HCPCS: 82565; 84520; 70450; 70482; 36415; Q9967

== ENCOUNTER → 2021-06-03 | Outpatient (CLI) | payer BC ==
--- NOTE | 2021-06-04 12:26 | MM ---
Reason for exam: screening (asymptomatic). Last mammogram was performed 1 year and 1 month ago. History: Patient is postmenopausal. Took estrogen for 5 years 4 months. Physical Findings: A clinical breast exam by your physician is recommended on an annual basis and results should be correlated with mammographic findings. MG Screening Mammo w CAD Bilateral CC and MLO view(s) were taken. Prior study comparison: April 30, 2020, bilateral MG screening mammo w CAD. March 22, 2019, bilateral MG screening mammo w CAD. November 09, 2017, bilateral MG screening mammo w CAD. The breast tissue is heterogeneously dense. This may lower the sensitivity of mammography. There are benign appearing vascular calcifications bilaterally. There is no discrete abnormality. ASSESSMENT: Benign, BI-RAD 2 RECOMMENDATION: Routine screening mammogram of both breasts in 1 year.
== END | disposition home or self-care (01) ==
LOC: RADMAMWWP 07:04
PROVIDERS: ATTEND Obstetrics & Gynecology
DX: Z12.31 Encounter for screening mammogram for malignant neoplasm of breast (principal); Z78.0 Asymptomatic menopausal state; Z79.818 Long term (current) use of other agents affecting estrogen receptors and estrogen levels
CPT/HCPCS: 77067

== ENCOUNTER → 2021-07-04 | Outpatient (CLI) | payer BC ==
--- NOTE | 2021-07-04 09:46 | XR ---
EXAMINATION TYPE: XR abdomen 2V DATE OF EXAM: 07/04/2021 CLINICAL HISTORY: Constipation and pain for 2 weeks. TECHNIQUE: Supine and upright views of the abdomen are obtained. COMPARISON: Abdominal x-ray November 30, 2019. FINDINGS: Scattered gas is seen in non-distended small bowel loops. Gas and fecal material is seen in non-distended colon. Some prominence of fecal material in the right colon. Cholecystectomy clips a re redemonstrated. Lung bases are clear. Underlying scoliosis redemonstrated. IMPRESSION: Overall nonobstructive bowel gas pattern. Mild to moderate proximal colonic fecal stasis .
== END | disposition home or self-care (01) ==
LOC: RADXRMAIN 09:18
PROVIDERS: ATTEND Nurse Practitioner Family
DX: K59.89 Other specified functional intestinal disorders (principal)
CPT/HCPCS: 74019

== ENCOUNTER 2022-04-07 10:51 | Day surgery (SDC) | payer BC ==
[2022-04-03 11:11] VITALS: BMI 25.0
[~2022-04-07 10:51] MED LIST changes: -LIDOCAINE 1% 20 ML VIAL (10MG/ML) FOR IV START INTRADERMA ONE; -LIDOCAINE 1% INJ 10MG/ML (20 ML MDV) ONE; -PROPOFOL 10 MG/ML 20 ML VIAL IV ONE
[2022-04-07 11:53] VITALS: TEMP 98.1
[2022-04-07] MEDS ORDERED: PROPOFOL 10 MG/ML 20 ML VIAL IV ONE (12:24)
--- NOTE | 2022-04-07 12:40 | P.PCN ---
Date of Procedure: 04/07/22 Procedure(s) Performed: PREOPERATIVE DIAGNOSIS: Change in bowel habits POSTOPERATIVE DIAGNOSIS: Normal exam PROCEDURE: Colonoscopy ANESTHESIA: MAC SURGEON: Jalen Phelps M.D. SPECIMENS: None ENDOSCOPIC PROCEDURE: The patient was placed on the endoscopy table in the left decubitus position. The Olympus colonoscope was inserted into the anus and passed under direct visualization to the base of the cecum. The appendiceal orifice was visualized. From that point the scope was slowly withdrawn inspecti ng all surfaces carefully. There were no neoplastic inflammatory or polypoid lesions throughout the cecum, ascending, transverse, descending, sigmoid and rectum. There was no visible diverticulosis noted. Digital rectal examination was normal. The patient was taken to the recovery room in stable condition per anesthesia guidelines. RECOMMENDATIONS: Resume diet. Follow colonoscopy 10 years.
[2022-04-07 13:05] VITALS: BP 111/68; PULSE 68; RESP 15
== END 2022-04-07 13:11 | disposition home or self-care (01) ==
LOC: ORWHC2ENDO 10:51
PROVIDERS: ATTEND Surgery
DX: R19.4 Change in bowel habit (principal); I48.91 Unspecified atrial fibrillation; G43.909 Migraine, unspecified, not intractable, without status migrainosus; H54.61 Unqualified visual loss, right eye, normal vision left eye; E78.5 Hyperlipidemia, unspecified; Z79.899 Other long term (current) drug therapy; Z88.5 Allergy status to narcotic agent; Z88.2 Allergy status to sulfonamides; Z88.8 Allergy status to other drugs, medicaments and biological substances; Z88.6 Allergy status to analgesic agent; Z98.890 Other specified postprocedural states; Z90.49 Acquired absence of other specified parts of digestive tract; Z80.1 Family history of malignant neoplasm of trachea, bronchus and lung
CPT/HCPCS: 45378; J2704

== ENCOUNTER → 2022-06-10 | Outpatient (CLI) | payer BC ==
--- NOTE | 2022-06-10 17:14 | MM ---
Reason for Exam: Screening (asymptomatic). Last screening mammogram was performed 12 month(s) ago. Patient History: Menarche at age 12. First Full-Term at age 17. Left ovary removed at age 38. Right ovary removed at age 38. Hysterectomy at age 38. Postmenopausal. Estrogen for 5 years, 4 months, until age 45. Risk Values: Freda 5 year model risk: 1.0%. NCI Lifetime model risk: 4.4%. Prior Study Comparison: 03/22/2019 Bilateral Screening Mammogram, [facility]. 04/30/2020 Bilateral Screening Mammogram, [facility]. 06/03/2021 Bilateral Screening Mammogram, [facility]. Tissue Density: The breast tissue is heterogeneously dense. This may lower the sensitivity of mammography. Findings: Analyzed By CAD. Benign vascular calcifications present bilaterally. No suspicious groups of microcalcifications, spiculated or lobular masses, architectural distortion or other secondary signs of malignancy are mammographically apparent. Overall Assessment: Benign, BI-RAD 2 Management: Screening Mammogram of both breasts in 1 year. A negative mammogram report should not preclude additional follow up of suspicious palpable abnormalities. Patient should continue monthly self breast exam. A clinical breast exam by your physician is recommended on an annual basis and results should be correlated with mammographic findings. Electronically signed and approved by: Piero Calderon D.O. Radiologis
== END | disposition home or self-care (01) ==
LOC: RADMAMWWP 07:13
PROVIDERS: ATTEND Obstetrics & Gynecology
DX: Z12.31 Encounter for screening mammogram for malignant neoplasm of breast (principal); Z78.0 Asymptomatic menopausal state
CPT/HCPCS: 77067

== ENCOUNTER → 2022-07-27 | Outpatient (CLI) | payer BC ==
--- NOTE | 2022-07-27 10:45 | XR ---
EXAMINATION TYPE: XR cervical spine limited DATE OF EXAM: 07/27/2022 COMPARISON: NONE HISTORY: Pain TECHNIQUE: Three views are submitted. FINDINGS: The odontoid is intact. There are no compression deformities. The prevertebral soft tissue structur es are within normal limits. A diffuse osteopenia. Degenerative disc disease C5-6 and C6-C7. Lung ap ices clear. Suspect facet arthropathy involving the mid to lower cervical spine greater on the left. IMPRESSION: 1. Degenerative disc disease with suspected facet arthropathy. Consider follow-up MRI
== END | disposition home or self-care (01) ==
LOC: RADXRMAIN 09:25
PROVIDERS: ATTEND Physician Assistant Medical
DX: M50.323 Other cervical disc degeneration at C6-C7 level (principal)
CPT/HCPCS: 72040

== ENCOUNTER → 2022-07-27 | Outpatient (CLI) | payer BC ==
[2022-07-27 08:59] VITALS: BP 113/71; PULSE 77; RESP 18
--- NOTE | 2022-07-27 15:09 | P.PAINPG ---
PQRS Measure Charge Sheet Comment: HISTORY OF PRESENT ILLNESS: 61 yr old female as a referral from Dr Douglas Fleming presents today w severe and chronic DUMONT secondary to occipital neuralgia for evaluation. Pt states her pain level is currently at 10/10 in intensity, constant, localized in the base of the head, sore/achy in character w shooting towards the L scalp. Pain is provoked by hyperextension. Pain is alleviated by GELY injections from Dr Odell in the past, meds (Imitrex, Ibuprofen), heat, massage therapy which pt is currently in, repositioning and rest. PMH: AFib, OA, Migraines, Hyperlipidemia PSH: Colonoscopy (2018), Adenoidectomy, Cholecystectomy (2014), Hysterectomy (1998), R Knee Arthroscopy x 3 (2019), R Knee Replacement (2019), Orthopedic Surgery, Tonsillectomy SH: Negative x 3 FH: Mo- Lung CA. Sis- Lung CA. Daughter- PE. All: See list Meds: See list REVIEW OF ORGAN SYSTEMS: CONSTITUTIONAL: No fevers or chills. No recent weight loss. NEUROLOGICAL: + numbness and tingling along the distal extremities. No seizure disorders or headaches. MUSCULOSKELETAL: + pain PSYCHIATRIC: Denies current depression or suicidal thoughts. Physical Examinations : Constitutional : Cooperative , not in acute distress . Neurologic : Cranial nerve II to XII intact. No focal neurological deficits. Psychiatric : alert & oriented x 3. Matching mood & appropriate affect. Judgment & insight intact. Musculoskeletal : Cervical Spine +L GELY TTP Motor strength in the deltoid and biceps: Normal right side. Normal Left side Motor strength biceps and the wrist extensors: Normal right side . Normal left side Motor strength in the triceps muscle: N ormal right side. Normal left side Deep tendon reflexes: Normal at the biceps. Normal at Brachioradialis. Normal at triceps Vertebral body tenderness to deep palpation over Cervical facet loading test: positive bilaterally Spurling test: positive bilaterally Neck distraction test: positive bilaterally Charanjit sign: positive bilaterally Lumbar spine Motor strength lower extremities ,thigh and legs 5/5 Right side , 5/5 Left side Deep tendon reflexes : Normal Knee Jerk. Normal Ankle Jerk Vertebral body tenderness over Lumbar facet Loading Test: positive Right / positive Left Range of motion of the lumbar spine Flexion 30 degrees, extension 10 degrees Straight Leg Raise test: Left/ Right positive at degree Pearl test: positive right / positive left. Severe tenderness over the Sacroiliac joint on the Right / Left sides Gaenslen test: positive bilaterally Seated flexion test: positive bilaterally. Sacral spine : Severe tenderness over the Sacroiliac joint: right side / left side Range of motion: Flexion of the lumbar spine <60 degrees Range of motion: Extension of the lumbar spine <20 degrees Gaenslen's Test positive Zack's Test positive Pearl test: positive right side / left side Thigh Thrust Test Sacral Thrust Test Imaging: None on file. Will give pt cervical xray script and obtain records from Dr Odell. Assessment/ Plan : L occipital neuralgia/ Cervicogenic DUMONT Recommendation of L GELY injection. Records on the way. May need a series, up to 4 per 12 mo period, for optimal pain relief. Risks, benefits of procedure discussed and patient verbalized understanding. Denies aspirin or anti- coagulant use or medical history of diabetes. Protocol for discontinuation/ continuation of medications daniel procedure discussed. All questions answered. I have spent greater than 30 minutes on patient care today. Dr Richardson was available by phone for the evaluation of this patient. The time was used to review the medical records including relevant urine studies and Prescription history (MAPs), review of the available imaging, evaluation and examination of the patient, coordination of care with the medical staff and if applicable referring physicians, as well as creation of the medical record - Pain Location Bilateral Upper Neck Non-Pharmacological Interventions: Heat, Massage Pharmacological Interventions: Block, PRN Medication PQRS Narrative: Smoking Status Never smoker Home Medications: Ambulatory Orders Gabapentin [Neurontin] 300 mg PO BID 04/22/14 Cholecalciferol (Vitamin D3) [Vitamin D3] 2,000 unit PO DAILY 05/26/17 Citalopram Hydrobromide [CeleXA] 40 mg PO HS 05/26/17 Ibuprofen [Motrin] 800 mg PO DAILY PRN 05/26/17 SUMAtriptan succinate [Imitrex] 50 mg PO BID PRN 05/26/17 Temazepam [Restoril] 15 mg PO HS 05/26/17 Atorvastatin [Lipitor] 10 mg PO DAILY 04/03/22 Controlled Substance Measures - Controlled Substance Measures Is patient prescribed a controlled substance at discharge?: No
== END ==
LOC: PNWHC3 08:19
PROVIDERS: ATTEND Specialist
DX: M54.81 Occipital neuralgia (principal); G44.86 Cervicogenic headache; I48.91 Unspecified atrial fibrillation; M17.11 Unilateral primary osteoarthritis, right knee; E78.5 Hyperlipidemia, unspecified; Z88.5 Allergy status to narcotic agent; Z88.2 Allergy status to sulfonamides; Z88.6 Allergy status to analgesic agent
CPT/HCPCS: 99211

== ENCOUNTER 2022-08-09 12:46 | Emergency (ER) | payer BC ==
[2022-08-09 13:02] VITALS: BP 108/75; PULSE 97; RESP 20; TEMP 97.6
--- NOTE | 2022-08-09 13:47 | ED ---
General Adult HPI - General Chief complaint: Dizziness Stated complaint: migraine, sore throat, nausea Time Seen by Provider: 08/09/22 13:46 Source: patient Mode of arrival: ambulatory Limitations: no limitations - History of Present Illness Initial comments: Patient presents to the ED with her for evaluation. Patient has multiple complaints. Patient states that she has had a "migraine headache" for the past week or so. Patient states that her headache is mainly along the left side of her head, and she states that she has had associated lightheadedness and nausea, which are typical of her migraine headaches. Patient also states that she has had a sore throat since yesterday, and she admits to having a mild cough and congestion as well. Patient also states that she is currently on ciprofloxacin treatment for a UTI. Patient states that her UTI symptoms (mainly dysuria) have improved since she began Cipro treatment 2 days ago. Patient denies trauma or injury, sudden onset of headache, LOC, neck pain or stiffness, fever or chills, focal numbness/weakness/neuro deficit, visual changes, speech difficulty, dysphagia, chest pain, dyspnea, hemoptysis, palpitations, syncope, abdominal pain, vomiting or diarrhea, bloody or melanotic stool, hematuria, or any other symptoms or complaints. Patient states that she is fully vaccinated against Covid. - Related Data Home Medications Medication Instructions Recorded Confirmed Gabapentin [Neurontin] 300 mg PO BID 04/22/14 07/27/22 Cholecalciferol (Vitamin D3) 2,000 unit PO DAILY 05/26/17 07/27/22 [Vitamin D3] Citalopram Hydrobromide [CeleXA] 40 mg PO HS 05/26/17 07/27/22 Ibuprofen [Motrin] 800 mg PO DAILY PRN 05/26/17 07/27/22 SUMAtriptan succinate [Imitrex] 50 mg PO BID PRN 05/26/17 07/27/22 Temazepam [Restoril] 15 mg PO HS 05/26/17 07/27/22 Atorvastatin [Lipitor] 10 mg PO DAILY 04/03/22 07/27/22 Allergies Allergy/AdvReac Type Severity Reaction Status Date / Time fluconazole [From Diflucan] Allergy Swelling Verified 08/09/22 13:02 sulfamethoxazole Allergy Rash/Hives Verified 08/09/22 13:02 [From Bactrim] trimethoprim [From Bactrim] Allergy Rash/Hives Verified 08/09/22 13:02 acetaminophen [From Vicodin] AdvReac Nausea & Verified 08/09/22 13:02 Vomiting hydrocodone bitartrate AdvReac Nausea & Verified 08/09/22 13:02 [From Vicodin] Vomiting Review of Systems ROS Statement: Those systems with pertinent positive or pertinent negative responses have been documented in the HPI. ROS Other: All systems not noted in ROS Statement are negative. Past Medical History Past Medical History: AFIB Additional Past Medical History / Comment(s): migraines, palpitations, History of Any Multi-Drug Resistant Organisms: None Reported Past Surgical History: Adenoidectomy, Cholecystectomy, Hysterectomy, Joint Replacement, Orthopedic Surgery, Tonsillectomy Additional Past Surgical History / Comment(s): athroscopic surgery rt knee x3, rt knee replacement, Past Anesthesia/Blood Transfusion Reactions: Family History of Problems w/ A nesthesia, Postoperative Nausea & Vomiting (PONV) Additional Past Anesthesia/Blood Transfusion Reaction / Comment(s): mother-PONV Past Psychological History: No Psychological Hx Reported Smoking Status: Never smoker Past Alcohol Use History: Occasional Past Drug Use History: Marijuana - Past Family History Mother Family Medical History: Cancer Additional Family Medical History / Comment(s): Lung cancer. Sister(s) Family Medical History: Cancer Additional Family Medical History / Comment(s): Lung Cancer. Daughter(s) Family Medical History: Pulmonary Embolus General Exam Limitations: no limitations General appearance: alert, in no apparent distress Head exam: Present: atraumatic, normocephalic Eye exam: Present: normal appearance, PERRL, EOMI. Absent: nystagmus ENT exam: Present: normal oropharynx, mucous membranes moist Neck exam: Present: other (No nuchal rigidity or meningeal signs are present on exam; trachea is in midline). Absent: tenderness, meningismus Respiratory exam: Present: normal lung sounds bilaterally. Absent: respiratory distress, wheezes, rales, rhonchi, stridor Cardiovascular Exam: Present: regular rate, normal rhythm, normal heart sounds, other (Normal radial pulses bilaterally) GI/Abdominal exam: Present: soft. Absent: distended, tenderness, guarding Extremities exam: Absent: tenderness, pedal edema, calf tenderness Back exam: Absent: CVA tenderness (R), CVA tenderness (L) Neurological exam: Present: alert, oriented X3, CN II-XII intact. Absent: motor sensory deficit Psychiatric exam: Present: normal affect, normal mood Skin exam: Present: warm, dry, intact, normal color Course Vital Signs 08/09/22 12:58 Temperature 97.6 F Pulse Rate 97 Respiratory 20 Rate Blood Pressure 108/75 O2 Sat by Pulse 96 Oximetry - Reevaluation(s) Reevaluation #1: 08/09/22 15:54 Patient denies development of any new symptoms while in the ED. Patient remains alert and breathing comfortably with a normal room air oxygen saturation. Patient states that her headache/symptoms have improved with ED treatment. Patient and are aware the patient's test results, and patient feels comfortable being discharged home at this time. Patient was counseled about migraine headaches and COVID-19 infection. Patient was also counseled on isolation precautions. Patient was clearly explained return and follow-up instructions, and she feels comfortable with this plan. Patient was instructed to follow up closely with her primary care provider. Medical Decision Making - Medical Decision Making I suspect that the patient's symptoms are likely due to COVID-19 infection. Patient's rapid strep test is negative. Patient's UA does not show definite ev idence of UTI at this time. Patient was instructed to complete the course of ciprofloxacin that she is currently taking. The patient's labs are otherwise fairly unremarkable. Patient is breathing comfortably with a normal room air oxygen saturation. Will discharge patient home with her at this time. Patient feels comfortable with this plan. - Lab Data Result diagrams: 08/09/22 14:28 08/09/22 14:28 Lab Results 08/09/22 08/09/22 08/09/22 Range/Units 14:09 14:28 14:28 WBC 4.1 (3.8-10.6) k/uL RBC 4.13 (3.80-5.40) m/uL Hgb 13.3 (11.4-16.0) gm/dL Hct 38.0 (34.0-46.0) % MCV 92.1 (80.0-100.0) fL MCH 32.2 (25.0-35.0) pg MCHC 34.9 (31.0-37.0) g/dL RDW 12.8 (11.5-15.5) % Plt Count 164 (150-450) k/uL MPV 7.9 Neutrophils % 78 % Lymphocytes % 9 % Monocytes % 9 % Eosinophils % 0 % Basophils % 1 % Neutrophils # 3.2 (1.3-7.7) k/uL Lymphocytes # 0.4 L (1.0-4.8) k/uL Monocytes # 0.4 (0-1.0) k/uL Eosinophils # 0.0 (0-0.7) k/uL Basophils # 0.0 (0-0.2) k/uL Sodium (137-145) mmol/L Potassium (3.5-5.1) mmol/L Chloride (98-107) mmol/L Carbon Dioxide (22-30) mmol/L Anion Gap mmol/L BUN (7-17) mg/dL Creatinine (0.52-1.04) mg/dL Est GFR (CKD-EPI)AfAm (>60 ml/min/1.73 sqM) Est GFR (CKD-EPI)NonAf (>60 ml/min/1.73 sqM) Glucose (74-99) mg/dL Calcium (8.4-10.2) mg/dL Total Bilirubin (0.2-1.3) mg/dL AST (14-36) U/L ALT (4-34) U/L Alkaline Phosphatase (38-126) U/L Total Protein (6.3-8.2) g/dL Albumin (3.5-5.0) g/dL Urine Color Yellow Urine Appearance Clear (Clear) Urine pH 6.5 (5.0-8.0) Ur Specific Rain[place] 1.022 (1.001-1.035) Urine Protein Trace H (Negative) Urine Glucose (UA) Negative (Negative) Urine Ketones Trace H (Negative) Urine Blood Negative (Negative) Urine Nitrite Negative (Negative) Urine Bilirubin Negative (Negative) Urine Urobilinogen <2.0 (<2.0) mg/dL Ur Leukocyte Esterase Trace H (Negative) Urine RBC 2 (0-5) /hpf Urine WBC 3 (0-5) /hpf Ur Squamous Epith Cells 10 H (0-4) /hpf Urine Bacteria Rare H (None) /hpf Urine Mucus Few H (None) /hpf Influenza Type A (PCR) (Not Detectd) Influenza Type B (PCR) (Not Detectd) RSV (PCR) (Not Detectd) SARS-CoV-2 (PCR) (Not Detectd) Group A Strep (PCR) NOT DETECTED (Not Detectd) 08/09/22 08/09/22 Range/Units 14:28 14:28 WBC (3.8-10.6) k/uL RBC (3.80-5.40) m/uL Hgb (11.4-16.0) gm/dL Hct (34.0-46.0) % MCV (80.0-100.0) fL MCH (25.0-35.0) pg MCHC (31.0-37.0) g/dL RDW (11.5-15.5) % Plt Count (150-450) k/uL MPV Neutrophils % % Lymphocytes % % Monocytes % % Eosinophils % % Basophils % % Neutrophils # (1.3-7.7) k/uL Lymphocytes # (1.0-4.8) k/uL Monocytes # (0-1.0) k/uL Eosinophils # (0-0.7) k/uL Basophils # (0-0.2) k/uL Sodium 135 L (137-145) mmol/L Potassium 4.1 (3.5-5.1) mmol/L Chloride 106 (98-107) mmol/L Carbon Dioxide 24 (22-30) mmol/L Anion Gap 5 mmol/L BUN 13 (7-17) mg/dL Creatinine 0.70 (0.52-1.04) mg/dL Est GFR (CKD-EPI)AfAm >90 (>60 ml/min/1.73 sqM) Est GFR (CKD-EPI)NonAf >90 (>60 ml/min/1.73 sqM) Glucose 109 H (74-99) mg/dL Calcium 8.8 (8.4-10.2) mg/dL Total Bilirubin 0.4 (0.2-1.3) mg/dL AST 37 H (14-36) U/L ALT 32 (4-34) U/L Alkaline Phosphatase 101 (38-126) U/L Total Protein 6.3 (6.3-8.2) g/dL Albumin 4.1 (3.5-5.0) g/dL Urine Color Urine Appearance (Clear) Urine pH (5.0-8.0) Ur Specific [place] (1.001-1.035) Urine Protein (Negative) Urine Glucose (UA) (Negative) Urine Ketones (Negative) Urine Blood (Negative) Urine Nitrite (Negative) Urine Bilirubin (Negative) Urine Urobilinogen (<2.0) mg/dL Ur Leukocyte Esterase (Negative) Urine RBC (0-5) /hpf Urine WBC (0-5) /hpf Ur Squamous Epith Cells (0-4) /hpf Urine Bacteria (None) /hpf Urine Mucus (None) /hpf Influenza Type A (PCR) Not Detected (Not Detectd) Influenza Type B (PCR) Not Detected (Not Detectd) RSV (PCR) Not Detected (Not Detectd) SARS-CoV-2 (PCR) Detected A (Not Detectd) Group A Strep (PCR) (Not Detectd) Disposition Clinical Impression: Migraine headache, COVID-19 Disposition: HOME SELF-CARE Condition: Stable Instructions (If sedation given, give patient instructions): Migraine Headache (ED), COVID-19 (Coronavirus Disease 2019) (ED) Additional Instructions: Return to the ER immediately should you develop new or worsening pain, shortness of breath/trouble breathing, a high fever, neck pain or stiffness, numbness or weakness, fainting, or new or worsening symptoms. Follow up closely with your primary care provider. Is patient prescribed a controlled substance at d/c from ED?: No Referrals: Douglas Fleming DO [Primary Care Provider] - 1-2 days Time of Disposition: 15:59
[2022-08-09] MEDS ORDERED: diphenhydrAMINE 50 MG/ML 1 ML VIAL IVP STA (13:52)
[2022-08-09] MEDS ORDERED: SODIUM CHLORIDE 0.9% 1,000 ML IV STA (13:52)
[2022-08-09] MEDS ORDERED: METOCLOPRAMIDE 5 MG/ML 2 ML VIAL IVP STA (13:52)
[2022-08-09] MEDS ORDERED: KETOROLAC 15 MG/ML 1 ML VIAL IVP STA (13:52)
[2022-08-09 14:40] LABS: Basophils % (A) 1 %; Eosinophils % (A) 0 %; HGB 13.3 gm/dL (11.4-16.0); Lymphocytes # (A) 0.4 k/uL (1.0-4.8); Lymphocytes % (A) 9 %; MCH 32.2 pg (25.0-35.0); MCHC 34.9 g/dL (31.0-37.0); MCV 92.1 fL (80.0-100.0); Mean Platelet Volume 7.9; Monocytes # (A) 0.4 k/uL (0-1.0); Monocytes % (A) 9 %; Neutrophils # (A) 3.2 k/uL (1.3-7.7); Neutrophils % (A) 78 %; Platelet Count 164 k/uL (150-450); RBC 4.13 m/uL (3.80-5.40); RDW 12.8 % (11.5-15.5); WBC 4.1 k/uL (3.8-10.6)
[2022-08-09 14:50] LABS: ALT 32 U/L (4-34); AST 37 U/L (14-36); African American GFR (CKD) >90 (>60 ml/min/1.73 sqM); Albumin 4.1 g/dL (3.5-5.0); Alkaline Phosphatase 101 U/L (38-126); Anion Gap 5 mmol/L; Blood Urea Nitrogen 13 mg/dL (7-17); Calcium 8.8 mg/dL (8.4-10.2); Carbon Dioxide 24 mmol/L (22-30); Chloride 106 mmol/L (98-107); Glucose 109 mg/dL (74-99); Non-African American GFR(CKD) >90 (>60 ml/min/1.73 sqM); Potassium 4.1 mmol/L (3.5-5.1); Sodium 135 mmol/L (137-145); Total Bilirubin 0.4 mg/dL (0.2-1.3); Total Protein 6.3 g/dL (6.3-8.2)
[2022-08-09 14:56] LABS: Appearance,Urine Clear (Clear); Bacteria,Urine Rare /hpf; Bilirubin,Urine Negative (Negative); Blood,Urine Negative (Negative); Color,Urine Yellow; Glucose,Urine (UA) Negative (Negative); Ketones,Urine Trace (Negative); Leukocyte Esterase,Urine Trace (Negative); Mucus,Urine Few /hpf; Nitrite,Urine Negative (Negative); PH, Urine 6.5 (5.0-8.0); Protein,Urine Trace (Negative); RBC,Urine 2 /hpf (0-5); Specific Gravity,Urine 1.022 (1.001-1.035); Squamous Epithelial Cell,Urine 10 /hpf (0-4); Urobilinogen,Urine <2.0 mg/dL (<2.0); WBC,Urine 3 /hpf (0-5)
== END 2022-08-09 16:09 | disposition home or self-care (01) ==
LOC: EC 12:46
DX: U07.1 COVID-19 (principal); G43.909 Migraine, unspecified, not intractable, without status migrainosus; I48.91 Unspecified atrial fibrillation; F12.90 Cannabis use, unspecified, uncomplicated; Z88.2 Allergy status to sulfonamides; Z88.6 Allergy status to analgesic agent; Z88.5 Allergy status to narcotic agent; Z79.899 Other long term (current) drug therapy
CPT/HCPCS: 99283 ×2; 96374 ×2; 96375 ×3; 96361 ×2; 36415; 87651; 80053; 85025; 81001; 87636; J1200; J2765; J1885; 99284

== ENCOUNTER 2022-08-27 06:41 | Day surgery (SDC) | payer BC ==
[2022-08-25 15:48] VITALS: BMI 25.0
[~2022-08-27 06:41] MED LIST changes: +LIDOCAINE 1% (10MG/ML) FOR IV START INTRADERMA PRN
[2022-08-27 07:25] VITALS: TEMP 97.1
[2022-08-27] MEDS ORDERED: LACTATED RINGERS 1,000 ML IV ONE (07:33)
[2022-08-27] MEDS ORDERED: fentaNYL (PF) 50 MCG/ML 2 ML AMP ONE (07:37)
[2022-08-27] MEDS ORDERED: ROPIVACAINE 5 MG/ML 20 ML AMPULE ONE (07:37)
[2022-08-27] MEDS ORDERED: MIDAZOLAM 2 MG/2 ML VIAL ONE (07:37)
[2022-08-27] MEDS ORDERED: methylPREDNISolone ACETATE 80 MG/ML 1 ML VIAL ONE (07:37)
--- NOTE | 2022-08-27 07:45 | P.PCN ---
Date of Procedure: 08/27/22 Procedure(s) Performed: Preoperative diagnoses= 1- left Greater occipital neuralgia. 2-cervicogenic headache. 3-cervical spondylosis with cervical facet arthropathy Postoperative diagnoses= same as preoperative diagnosis. Procedure= left Greater occipital nerve block Anesthesia= moderate sedation with Versed 1 mg and fentanyl 50 micrograms Sedation start time : 0 738 . Sedation end time : 0 742 . Estimated blood loss=minimal. Procedure indication= the patient had a history of severe chronic neck pain ,and headache, diagnosed with occipital neuralgia exam was positive for severe tenderness over the occipital nerve bilaterally, she will be a good candidate occipital nerve block, patient failed conservative management Procedure description= the patient was seen and identified in the preoperative holding area, risks and benefits and alternative of the procedure and possible complications discussed with the patient, and he agreed with the preceding, patient signed the consent, an IV was started, and vital signs were monitored and were stable throughout the procedure, patient was placed in the sitting position or table and the neck area was prepped and draped with a sterile fashion, vital signs were closely monitored during the procedure, 25-gauge needle advanced 1 inch lateral to the occipital protuberance on the left side, at the location of the left occipital nerve , then after negative aspiration for heme and CSF and there was no paresthesia during the injection, 6 ml of Robivacaine 0.5% and 60 mg of Depo-Medrol injected after negative aspiration, the needle removed. Patient tolerated the procedure well without any complication, The patient returned to supine position after the back was cleaned and a Band- Aid applied, the patient transported to recovery room in stable condition and he was monitored for 30 minutes before he was discharged home and then patient was reexamined before going home and patient was discharged in stable condition and patient will follow up with the pain clinic in a few weeks.
[2022-08-27] MEDS ORDERED: IV FLUID CONTINUATION 1,000 ML IV ONE (07:47)
[2022-08-27 07:50] VITALS: RESP 16
[2022-08-27 08:02] VITALS: BP 105/59; PULSE 61
== END 2022-08-27 08:16 | disposition home or self-care (01) ==
LOC: ORPAIN 06:41
PROVIDERS: ATTEND Specialist
DX: M54.81 Occipital neuralgia (principal); G44.86 Cervicogenic headache; G89.29 Other chronic pain; M47.812 Spondylosis without myelopathy or radiculopathy, cervical region; Z88.2 Allergy status to sulfonamides; Z88.5 Allergy status to narcotic agent
CPT/HCPCS: 64405; J2250; J1040; J3010; J2795

== ENCOUNTER → 2022-09-10 | Outpatient (CLI) | payer BC ==
[2022-09-10 08:58] VITALS: BP 123/72; PULSE 81; RESP 16
--- NOTE | 2022-09-10 09:06 | P.PAINPG ---
Subjective Progress Note Date: 09/10/22 Principal diagnosis: Migraine headaches Ms. Barajas is a 61-year-old pleasant female came to the [facility] pain clinic for postprocedure evaluation after left side greater occipital nerve block. She had 100% headache relief since the procedure. She still having good pain relief. But experiencing pain in her left-sided neck. Her pain is not radiating to her upper extremities. She denied any numbness or tingling sensation in her upper extremities at this time. She had cervical spine x-ray done on 07/27/2022 showed diffuse osteopenia. Degenerative disc disease at C5- C6 C6-C7 level area . . Patient describes pain is aching, throbbing, constant type of pain. Patient rated pain levels are 2-3 out of 10 in severity. With the help of medications pain levels are 2-8 out of 10 in severity. Activities making pain worse sometimes. Medications, resting, intervention procedures helping in relieving patient's pain. Patient pain some days better than others. Overall activities decreased secondary to pain. Because of the pain sometimes patient is feeling lack of sleep, interest, and energy. Denied any side effects with the medications. Denied any bowel or bladder problems at this time. She is not using any walking aids at this time. Patient denies any suicidal or homicidal ideations intent or plan. Patient denies any auditory or visual hallucinations. Patient denied any red flag symptoms related to pain. Objective - Exam General: Well-developed, well-nourished, no acute distress HEENT: Normocephalic, and atraumatic Neck: Supple, no neck swelling Psychiatric: Appropriate mood, and affect SPRING CRATER: No focal neurological deficits Musculoskeletal: Upper extremity: Normal strength, and range of motion. Sensation grossly intact Lower extremity: Normal strength, and normal range of motion. Cervical spine: Paravertebral tenderness: Positive Cervical spine facet sandip: Positive Cervical spine Spurling test: Negative - Constitutional Constitutional Comment(s): To upon review of symptoms negative except as mentioned in the history of pres ent illness. Assessment and Plan Assessment: Occipital neuralgia, and greater occipital neuralgia. Cervical spondylosis without myelopathy Myofascial pain syndrome Plan: #1 Diagnoses, prognosis, and multiple treatment options including but not limited to physical therapy, interventional therapy, adjunct medication therapy, narcotic medication, and surgical options were discussed with the patient. And all questions were answered to the patient's satisfaction. #2 treatment plan agreement : Patient was thoroughly discussed regarding the treatment options, alternatives, and importance of exercises as tolerated. Patient clearly understood. #3 Patient was counseled on importance of regular exercise. Including girish chi, aerobic exercises as tolerated. Which helps for chronic pain, and overall well- being. #4 investigations: MAPS- reviewed , urine drug test- not done #5 diagnostic tests: Cervical x-ray done on 08/06/2022 showed diffuse osteopenia. Degenerative disc disease at C5-C6, C6-C7. Overall impression degenerative disc disease with suspected facet arthropathy. Consider MRI in future after physical therapy if needed #6 consultation : Physical therapy 2 times per week for 6 weeks duration # 7 interventional procedures: None at this time . We will repeat left side greater occipital nerve block / left side cervical C2-C3, C3-C4, and right occipital nerve block in future if needed #8 medications #1 Tylenol/Motrin as needed long-term consequences discussed with the patient. Patient recommended to contact the pain clinic if noticed any issues with given medications. #9 morphine milligrams equivalents dose ( MME) pe0 from the pain clinic #10 TENS unit's as needed #11 disposition: scheduled to follow up with pain clinic As needed after physical therapy Time with Patient: Less than 30 PQRS Measure Charge Sheet Measure #130: Documentation of Current Meds in Medical Chart: Patient's medications documented in chart Measure #226: Tobacco Use: Screen & Cessation Intervention: Pt not a tobacco user Measure #111: Pneumonia Vaccination: Pneumococcal vaccine NOT administered or previously given Measure #47: Advance Care Plan: Advance care planning discussed & documented, pt chose/unable to give Measure #412: Opioid Treatment Agreement: No documentation of signed opioid tr eatment agreement Measure #408: Opioid Therapy Follow-up Evaluation: Patient had NO f/u eval minimum every 3 months during opioid therapy Measure #317: Preventitive Care & Scrn High Bld Press & F/U: Normal blood pressure, f/u not required Measure #128: Body Mass Index (BMI) Screening & Follow-up: BMI documented within normal parameters Measure #131: Pain Assessment & Follow-up: Pain positive & plan documented Measure #431: Unhealthy Alcohol Use Preventative Care & Scrn: Patient not identified as an unhealthy alcohol user PQRS Narrative: Smoking Status Never smoker Hx Alcohol Use (MH) Yes: OCCASIONAL Home Medications: Ambulatory Orders Gabapentin [Neurontin] 300 mg PO BID 04/22/14 Cholecalciferol (Vitamin D3) [Vitamin D3] 2,000 unit PO DAILY 05/26/17 Citalopram Hydrobromide [CeleXA] 40 mg PO HS 05/26/17 Ibuprofen [Motrin] 800 mg PO DAILY PRN 05/26/17 SUMAtriptan succinate [Imitrex] 50 mg PO BID PRN 05/26/17 Temazepam [Restoril] 15 mg PO HS 05/26/17 Atorvastatin [Lipitor] 10 mg PO HS 04/03/22 Controlled Substance Measures - Controlled Substance Measures Is patient prescribed a controlled substance at discharge?: No
== END ==
LOC: PNWHC3 08:27
DX: M47.812 Spondylosis without myelopathy or radiculopathy, cervical region (principal); M79.10 Myalgia, unspecified site; M54.81 Occipital neuralgia; Z88.5 Allergy status to narcotic agent; Z88.2 Allergy status to sulfonamides; Z88.8 Allergy status to other drugs, medicaments and biological substances
CPT/HCPCS: 99211

== ENCOUNTER → 2023-04-08 | Outpatient (CLI) | payer BC ==
--- NOTE | 2023-04-08 09:08 | XR ---
EXAMINATION TYPE: XR ankle limited RT DATE OF EXAM: 04/08/2023 COMPARISON: NONE HISTORY: Pain TECHNIQUE: Frontal, lateral and oblique images of the right ankle are obtained. COMPARISON: None. FINDINGS: There is no acute fracture/dislocation evident. The joint spaces appear within normal duron its. The overlying soft tissue appears unremarkable. Plantar and dorsal calcaneal spurs noted. IMPRESSION: There is no acute fracture or dislocation seen.
== END | disposition home or self-care (01) ==
LOC: RADXRMAIN 08:40
PROVIDERS: ATTEND Nurse Practitioner Family
DX: S99.911A Unspecified injury of right ankle, initial encounter (principal); X58.XXXA Exposure to other specified factors, initial encounter

== ENCOUNTER → 2023-07-02 | Outpatient (CLI) | payer BC ==
--- NOTE | 2023-07-02 09:51 | BD ---
EXAMINATION TYPE: Axial Bone Density DATE OF EXAM: 07/02/2023 CLINICAL HISTORY: 62 years old Female. ICD-10 CODE: M85.88 OTH DISRD OF BONE DENSITY AND STRUCTURE, OT Height: 66.5in Weight: 164lb FRAX RISK QUESTIONS: History of ribs fx, unknown date and sternum fx 2019 Secondary Osteoporosis: 3. Menopause before 43: total hyst at 39 RISK FACTORS HISTORY OF: Active: yes Postmenopausal woman: yes Take estrogen and/or progesterone medications: after hysterectomy, none current How long: about 4 years MEDICATIONS: Osteoporosis Medications: Which medication: Fosamax none current How Long: age 52 for 1 year Additional Medications: cholesterol med Additional History: EXAM MEASUREMENTS: Bone mineral densitometry was performed using the [employer] System. Bone mineral density as measured about the Lumbar spine is: ----- L1-L4(G/cm2): 0.917 T Score Values are as follows: ----- L1: -2.8 ----- L2: -2.3 ----- L3: -1.6 ----- L4: -2.4 ----- L1-L4: -2.2 Z Score Values are as follows: ----- L1: -1.5 ----- L2: -1.1 ----- L3: -0.4 ----- L4: -1.1 ----- L1-L4: -0.9 Bone mineral density has: Increased 0.3% since study of: 06-03-2020 Bone mineral density about the R hip (g/cm2): 0.974 Bone mineral density about the L hip (g/cm2): 0.958 T Score values are as follows: -----R Neck: -0.7 -----L Neck: -0.9 -----R Total: -0.3 -----L Total: -0.4 Z Score values are as follows: -----R Neck: 0.6 -----L Neck: 0.4 -----R Total: 0.7 -----L Total: 0.6 Bone mineral density has: Increased 0.9% since study of: 06-03-2020 FRAX%s: The graph provided illustrates a 13% chance for a major osteoporotic fx and a 0.8% chance for the hips probability for fx in 10 years time. IMPRESSION: Normal (Values between +1 and -1 indicate normal bone mass). Consider repeating this study in 5 year s or sooner if there is some new clinical indication. NOTE: T-SCORE=SD OF THE YOUNG ADULT MEAN.
== END | disposition home or self-care (01) ==
LOC: RADBDWWP 08:42
PROVIDERS: ATTEND Obstetrics & Gynecology
DX: M81.0 Age-related osteoporosis without current pathological fracture (principal); M85.88 Other specified disorders of bone density and structure, other site; Z78.0 Asymptomatic menopausal state
CPT/HCPCS: 77080

== ENCOUNTER → 2023-10-11 | Outpatient (CLI) | payer MEDICARE, OTHER ==
--- NOTE | 2023-10-11 13:55 | XR ---
EXAMINATION TYPE: XR chest 2V DATE OF EXAM: 10/11/2023 COMPARISON: 11/30/2019 HISTORY: 63-year-old female R05.9, cough TECHNIQUE: Frontal and lateral views FINDINGS: Heart normal size. Aorta and pulmonary vasculature within normal limits. No consolidation or pleural effusion. IMPRESSION: No acute cardiopulmonary process.
== END | disposition home or self-care (01) ==
LOC: RADXRMAIN 08:10
PROVIDERS: ATTEND Family Medicine
DX: R05.9 Cough, unspecified (principal); R50.9 Fever, unspecified
CPT/HCPCS: 71046

== ENCOUNTER → 2024-06-16 | Outpatient (CLI) | payer MEDICARE, OTHER ==
--- NOTE | 2024-06-19 08:19 | MM ---
Reason for Exam: Screening (asymptomatic). Last screening mammogram was performed 12 month(s) ago. Patient History: Menarche at age 12. First Full-Term at age 17. Left ovary removed at age 38. Right ovary removed at age 38. Hysterectomy at age 38. Postmenopausal. Estrogen for 5 years, 4 months, until age 45. Maternal aunt had ovarian cancer under age 50. Maternal grandmother had ovarian cancer under age 50. Mother had ovarian cancer under age 50. Risk Values: Freda 5 year model risk: 1.1%. NCI Lifetime model risk: 4.2%. Prior Study Comparison: 06/03/2021 Bilateral Screening Mammogram, [facility]. 06/10/2022 Bilateral MG screening mammo w CAD, [facility]. 06/15/2023 Bilateral MG screening mammo w CAD, [facility]. Tissue Density: There are scattered areas of fibroglandular density. Findings: Analyzed By CAD. Right breast: There is no suspicious group of microcalcifications or new suspicious mass. Left breast: There is no suspicious group of microcalcifications or new suspicious mass. Overall Assessment: Negative, BI-RAD 1 Management: Screening Mammogram of both breasts in [address] [facility] will attempt to contact patient to return for supplemental views and ultrasound if indicated. Patient should continue monthly self-breast exams. A clinical breast exam by your physician is recommended on an annual basis. This exam should not preclude additional follow-up of suspicious palpable abnormalities. Note on Freda scores and lifetime risk: 1. A Freda score greater than 3% is considered moderate risk. If this is the case, consider specialist referral to assess eligibility for a risk reducing agent. 2. If overall lifetime risk for the development of breast cancer is 20% or higher, the patient may qualify for future screening with alternating mammogram and breast MRI. [facility], , 06/19/2024 8:16 AM. Electronically signed and approved by: Artie Slaughter DO
== END | disposition home or self-care (01) ==
LOC: RADMAMWWP 08:57
PROVIDERS: ATTEND Family Medicine
DX: Z12.31 Encounter for screening mammogram for malignant neoplasm of breast
CPT/HCPCS: 77063; 77067

== ENCOUNTER → 2024-11-27 | Outpatient (CLI) | payer MEDICARE, OTHER ==
--- NOTE | 2024-11-27 15:53 | XR ---
EXAMINATION TYPE: XR chest 2V DATE OF EXAM: 11/27/2024 3:32 PM COMPARISON: Chest radiographs from 10/11/2023. CLINICAL INDICATION: Female, 64 years old with history of R05.1; [facility] TECHNIQUE: XR chest 2V Frontal and lateral views of the chest. FINDINGS: Lungs/Pleura: There is flattening of the diaphragm with increased lucency of the lungs. No evidence o f pneumothorax, pleural effusion or focal consolidation. Pulmonary vascularity: Unremarkable. Heart/mediastinum: Cardiomediastinal silhouette is unremarkable. Musculoskeletal: No acute osseous pathology. IMPRESSION: 1. No acute cardiopulmonary disease process. 2. COPD changes. [facility], , 11/27/2024 3:50 PM
== END | disposition home or self-care (01) ==
LOC: RADXRMAIN 15:15
PROVIDERS: ATTEND Family Medicine
DX: J44.9 Chronic obstructive pulmonary disease, unspecified (principal)
CPT/HCPCS: 71046